=== PATIENT | female | born 1980 | race Caucasian/White ===

== ENCOUNTER 2018-01-07 18:37 | Emergency (ER) | payer SELFPAY ==
[~2018-01-07] VITALS: Ht 160 cm; Wt 75.0 kg
[~2018-01-07 18:37] MED LIST: CAMRTAB PO; DIAZ10TA PO; DULO1CAP3 PO; GABA600T PO; HYDR-3535 PO; HYDR-3583 PO; MAXA10TA2 PO; MS C15TA7 PO; OSEL75 PO; REME30TA PO; TIOC1OIN3 VAGINAL; TIZA4 PO
[2018-01-07 18:49] VITALS: BP 136/93; PULSE 93; RESP 15; TEMP 98.1; O2SAT 96
[2018-01-07 18:53] VITALS: BP 136/93; PULSE 93; RESP 15; TEMP 98.1; O2SAT 96
[2018-01-07] MEDS ORDERED: SODIUM CHLOR 0.9% 1000 ML INJ 1,000 ML IV SCH (18:59)
--- NOTE | 2018-01-07 19:30 | RADRPT ---
EXAM DATE/TIME: 01/07/2018 19:17 [facility] COMPARISON: No previous studies available for comparison. INDICATIONS : Altered mental status. RADIATION DOSE: 36.61 CTDIvol (mGy) MEDICAL HISTORY : Cardiovascular disease. Hypertension. SURGICAL HISTORY : None. ENCOUNTER: Initial ACUITY: 1 day PAIN SCALE: 0/10 LOCATION: cranial TECHNIQUE: Multiple contiguous axial images were obtained of the head. Using automated exposure control and adj ustment of the mA and/or kV according to patient size, radiation dose was kept as low as reasonably a chievable to obtain optimal diagnostic quality images. DICOM format image data is available electro nically for review and comparison. FINDINGS: CEREBRUM: The ventricles are normal for age. No evidence of midline shift, mass lesion, hemorrhage or acute in farction. No extra-axial fluid collections are seen. POSTERIOR FOSSA: The cerebellum and brainstem are intact. The 4th ventricle is midline. The cerebellopontine angle i s unremarkable. EXTRACRANIAL: The visualized portion of the orbits is intact. SKULL: The calvaria is intact. No evidence of skull fracture. CONCLUSION: Normal examination. Lee Gagnon MD on January 07, 2018 at 19:26 Board Certified Radiologist. This report was verified electronically.
[2018-01-07 19:37] LABS: AUTOMATED NEUTROPHIL # 5.1 TH/MM3 (1.8-7.7); BASOPHIL # 0.1 TH/MM3 (0-0.2); BASOPHIL % 0.8 % (0.0-2.0); EOSINOPHIL # 0.1 TH/MM3 (0-0.4); EOSINOPHIL % 1.4 % (0.0-4.0); HEMATOCRIT 39.7 % (35.0-46.0); HEMOGLOBIN 13.3 GM/DL (11.6-15.3); LYMPH % 30.4 % (9.0-44.0); LYMPHOCYTE # 2.7 TH/MM3 (1.0-4.8); MEAN CELL VOLUME 82.2 FL (80.0-100.0); MEAN CORPUSCULAR HEMOGLOBIN 27.5 PG (27.0-34.0); MEAN CORPUSCULAR HGB CONC 33.4 % (32.0-36.0); MONO % 10.3 % (0.0-8.0); MONOCYTE # 0.9 TH/MM3 (0-0.9); NEUT % 57.1 % (16.0-70.0); PLATELET COUNT 527 TH/MM3 (150-450); RED BLOOD COUNT 4.84 MIL/MM3 (4.00-5.30); RED CELL DISTRIBUTION WIDTH 15.2 % (11.6-17.2)
[2018-01-07 20:11] LABS: ALBUMIN 2.9 GM/DL (3.4-5.0); AST (GOT) 20 U/L (15-37); BICARBONATE 19.4 MEQ/L (21.0-32.0); BLOOD UREA NITROGEN 4 MG/DL (7-18); CALCIUM 7.5 MG/DL (8.5-10.1); CHLORIDE 114 MEQ/L (98-107); CREATININE 0.76 MG/DL (0.50-1.00); GLOMERULAR FILTRATION RATE 85 ML/MIN (>89); GLUCOSE,RANDOM 99 MG/DL (74-106); SODIUM (NA) 144 MEQ/L (136-145)
[2018-01-07 20:12] LABS: ALT (GPT) 19 U/L (10-53)
[2018-01-07 20:21] LABS: ALKALINE PHOSPHATASE 105 U/L (45-117); TOTAL BILIRUBIN ADULT 0.3 MG/DL (0.2-1.0); TOTAL PROTEIN 6.5 GM/DL (6.4-8.2); TROPONIN I LESS THAN 0.02 NG/ML (0.02-0.05)
[2018-01-07 20:38] LABS: D-DIMER 1.19 MG/L FEU (0.00-0.50)
--- NOTE | 2018-01-07 22:46 | PD ---
HPI Chief Complaint: Neuro Symptoms/ Deficits Time Seen by Provider: 18:54 Travel History International Travel<30 days: No Contact w/Intl Traveler<30days: No Traveled to known affect area: No History of Present Illness HPI 37y female with a history of Lupus, fibromyalgia, and anxiety presents to the ED via [facility] c/o chest pain and an unusual sensation to her head that started just prior to arrival. Says that she had an electrical shock to her head that was diffuse and intense and she fell onto the ground and began having chest pain. Patient has a difficult time explaining her symptoms. Pt denies loss of consciousness. Says that the electric shock has occurred 5 times today. Her chest pain is localized to the anterior chest without radiation of pain. Patient says that she has a history of unusual lung nodules however, they are unable to perform interventions to correct this because her "platelets are too high". PFSH Past Medical History Arthritis: No Asthma: No Atrial Fibrillation: Yes (H/O AFIB REQUIRED ABLATION) Autoimmune Disease: No Blood Disorders: No Anxiety: Yes Depression: Yes Heart Rhythm Problems: Yes Cancer: No Cardiac Catheterization: No Cardiovascular Problems: Yes High Cholesterol: No Chest Pain: No Congestive Heart Failure: No COPD: No Cerebrovascular Accident: No Diabetes: No Diminished Hearing: No Endocrine: No Fibromyalgia: Yes Gastrointestinal Disorders: No GERD: No Genitourinary: No Hiatal Hernia: No Hypertension: Yes Immune Disorder: No Implanted Vascular Access Dvce: No Insomnia: Yes Kidney Stones: No Medical other: Yes (LUPUS) Musculoskeletal: No Neurologic: Yes (migraines) Psychiatric: Yes Reproductive: No Respiratory: No Migraines: Yes Renal Failure: No Seizures: No Sickle Cell Disease: No Sleep Apnea: No Ulcer: No Tetanus Vaccination: Unknown Influenza Vaccination: Yes ?: Not LMP: 01/07/18 : 3 Para: 3 Past Surgical History Abdominal Surgery: No AICD: No Arteriovenous Shunt: No Cardiac Surgery: Yes (CARDIAC ABLATION 2006) Coronary Artery Bypass Graft: No Ear Surgery: No Endocrine Surgery: Yes (TONSILECTOMY 2000) Eye Surgery: No Genitourinary Surgery: No Gynecologic Surgery: No Insulin Pump: No Joint Replacement: No Oral Surgery: No Pacemaker: No Thoracic Surgery: No Tonsillectomy: Yes Other Surgery: Yes (tonsilectemy, ablation, mass from back?) Social History Alcohol Use: Yes (occasionally) Tobacco Use: No Substance Use: No Allergies-Medications (Allergen,Severity, Reaction): Coded Allergies: diphenhydramine (Unverified Allergy, Severe, MAKES HYPER, 01/07/18) adhesive (Unverified Allergy, Mild, BLISTERS, 01/07/18) Reported Meds & Prescriptions Reported Meds & Active Scripts Active Duloxetine DR (Duloxetine HCl) 60 Mg Capdr 62 Mg PO DAILY Gabapentin 600 Mg Tab 600 Mg PO TID Remeron (Mirtazapine) 30 Mg Tab 30 Mg PO HS Diazepam 10 Mg Tab 10 Mg PO BID PRN Hydrocodone-Acetaminophen 10-325 mg Tab 1 Tab PO Q6H PRN Ms Contin (Morphine Sulfate) 15 Mg Tab 15 Mg PO BID Camrese (Levonorgestrel-Ethinyl Estradiol) 0.15-0.03-0.01 Mg Tab 1 Tab PO DAILY Review of Systems Except as stated in HPI: all other systems reviewed are Neg Physical Exam Narrative GENERAL: Well-nourished, well-developed patient, appearing fatigued and reluctant to discuss her symptoms. SKIN: Focused skin assessment warm/dry. HEAD: Normocephalic. EYES: No scleral icterus. No injection or drainage. NECK: Supple, trachea midline. No JVD or lymphadenopathy. CARDIOVASCULAR: Regular rate and rhythm without murmurs, gallops, or rubs. RESPIRATORY: Breath sounds equal bilaterally. No accessory muscle use. GASTROINTESTINAL: Abdomen soft, non-tender, nondistended. No CVA tenderness MUSCULOSKELETAL: No cyanosis, or edema. No tenderness palpation of the chest wall. Homans sign negative bilaterally BACK: Nontender without obvious deformity. No CVA tenderness. Data Data Last Documented VS Vital Signs Date Time Temp Pulse Resp B/P (MAP) Pulse Ox O2 Delivery O2 Flow Rate FiO2 01/08/18 00:48 60 16 134/87 (103) 98 01/07/18 18:53 98.1 Room Air Orders Orders Electrocardiogram (01/07/18 18:59) Ammonia (01/07/18 18:59) Complete Blood Count With Diff (01/07/18 18:59) Comprehensive Metabolic Panel (01/07/18 18:59) Creatine Kinase (Cpk) (01/07/18 18:59) Prothrombin Time / Inr (Pt) (01/07/18 18:59) Act Partial Throm Time (Ptt) (01/07/18 18:59) Troponin I (01/07/18 18:59) Thyroid Stimulating Hormone (01/07/18 18:59) Urinalysis - C+S If Indicated (01/07/18 18:59) Sodium Chlor 0.9% 1000 Ml Inj (Ns 1000 M (01/07/18 18:59) D-Dimer (01/07/18 18:59) Ct Brain W/O Iv Contrast(Rout) (01/07/18 ) Ct Pulmonary Angiogram (01/07/18 ) Ed Urine Pregnancytest Poc (01/07/18 22:46) Potassium Chloride (Kcl) (01/07/18 23:30) Iohexol 350 Inj (Omnipaque 350 Inj) (01/07/18 23:15) Ed Discharge Order (01/08/18 00:19) Labs Laboratory Tests Test 01/07/18 19:13 01/07/18 19:44 01/07/18 23:30 White Blood Count 9.0 TH/MM3 Red Blood Count 4.84 MIL/MM3 Hemoglobin 13.3 GM/DL Hematocrit 39.7 % Mean Corpuscular Volume 82.2 FL Mean Corpuscular Hemoglobin 27.5 PG Mean Corpuscular Hemoglobin Concent 33.4 % Red Cell Distribution Width 15.2 % Platelet Count 527 TH/MM3 Mean Platelet Volume 8.0 FL Neutrophils (%) (Auto) 57.1 % Lymphocytes (%) (Auto) 30.4 % Monocytes (%) (Auto) 10.3 % Eosinophils (%) (Auto) 1.4 % Basophils (%) (Auto) 0.8 % Neutrophils # (Auto) 5.1 TH/MM3 Lymphocytes # (Auto) 2.7 TH/MM3 Monocytes # (Auto) 0.9 TH/MM3 Eosinophils # (Auto) 0.1 TH/MM3 Basophils # (Auto) 0.1 TH/MM3 CBC Comment DIFF FINAL Differential Comment Prothrombin Time 10.0 SEC Prothromb Time International Ratio 1.0 RATIO Activated Partial Thromboplast Time 26.7 SEC D-Dimer Quantitative (PE/DVT) 1.19 MG/L FEU Blood Urea Nitrogen 4 MG/DL Creatinine 0.76 MG/DL Random Glucose 99 MG/DL Total Protein 6.5 GM/DL Albumin 2.9 GM/DL Calcium Level 7.5 MG/DL Alkaline Phosphatase 105 U/L Aspartate Amino Transf (AST/SGOT) 20 U/L Alanine Aminotransferase (ALT/SGPT) 19 U/L Total Bilirubin 0.3 MG/DL Sodium Level 144 MEQ/L Potassium Level 3.1 MEQ/L Chloride Level 114 MEQ/L Carbon Dioxide Level 19.4 MEQ/L Anion Gap 11 MEQ/L Estimat Glomerular Filtration Rate 85 ML/MIN Total Creatine Kinase 112 U/L Troponin I LESS THAN 0.02 NG/ML Thyroid Stimulating Hormone 3rd Gen 2.850 uIU/ML Ammonia 16 MCMOL/L Urine Color LIGHT-YELLOW Urine Turbidity CLEAR Urine pH 6.0 Urine Specific Webster 1.046 Urine Protein TRACE mg/dL Urine Glucose (UA) NEG mg/dL Urine Ketones NEG mg/dL Urine Occult Blood MOD Urine Nitrite NEG Urine Bilirubin NEG Urine Urobilinogen LESS THAN 2.0 MG/DL Urine Leukocyte Esterase NEG Urine RBC 11 /hpf Urine WBC 3 /hpf Urine Squamous Epithelial Cells 3 /hpf Urine Mucus FEW /lpf Microscopic Urinalysis Comment CATH-CULT NOT IND MDM Medical Decision Making Medical Screen Exam Complete: Yes Emergency Medical Condition: Yes Differential Diagnosis Malingering, generalized weakness, atypical chest pain, ACS, fibromyalgia exacerbation Narrative Course 37-year-old female with history of lupus, fibromyalgia, and anxiety presents emergency department for evaluation of an unusual head pain, she descries as an electric shock, and chest pain that started just prior to arrival. Her chest pain started while watching TV on the couch after her head pain started. Her head pain symptoms are not present upon arrival however. Patient arrived by [facility] and they state that patient had vague symptoms and was unable to completely describe her symptoms. As I walked in to evaluate patient, patient was appearing to interact with the nurses but was unable or unwilling to interact with me. I evaluated patient by asking questions and examining however , patient appeared fatigued and uninterested in our conversation. She was able to tell me that she has a history of pulmonary lung nodules but did not have a complete history regarding the findings or follow-up with these. Patient told [facility] that she had elevated platelets which is the reason why the lung nodules were not acted upon or evaluated further. Because of her history, ordered cardiac labs and include a d-dimer as she does have lupus and she is complaining of chest pain. Vital signs are stable. Physical exam findings essentially unremarkable except for a 37-year-old female obese well-developed, well-nourished, appearing fatigued, somewhat histrionic. EKG shows sinus rhythm without STEMI changes. EMR: Heart cath in 2014 for possible SVT, s/p ablation in 2012. Stress test negative or ischemia 2012. Pulmonary nodule known since 2014, recommended follow up imaging studies Q 6 months. Last Impressions Head CT 01/07/18 0000 Signed Impressions: Service Date/Time: December 19:17 - CONCLUSION: Normal examination. Lee Gagnon MD CBC & BMP Diagram 01/07/18 19:13 Total Protein 6.5, Albumin 2.9 L, Calcium Level 7.5 L, Alkaline Phosphatase 105 , Aspartate Amino Transf (AST/SGOT) 20, Alanine Aminotransferase (ALT/SGPT) 19, Total Bilirubin 0.3 Cardiac enzymes negative. D-dimer 1.19. Because of her complaints of chest pain and history of lupus, ordered CT pulmonary angiogram to r/o PE. KCL administered for hypokalemia. 1L NS IVF administered. Last Impressions Head CT 01/07/18 0000 Signed Impressions: Service Date/Time: December 19:17 - CONCLUSION: Normal examination. Lee Gagnon MD CT Angiography 01/07/18 0000 Signed Impressions: Service Date/Time: December 23:08 - CONCLUSION: No acute disease. Masoud Rodas Jr., MD Pt is discharged and advised to follow up with her PCP. She should follow up with pulmonology regarding her chest imaging studies. Consider neurology for her head pain symptoms if they persist. Diagnosis Primary Impression: Weakness Additional Impressions: Atypical chest pain Hypokalemia Referrals: Neurologist Primary Care Physician Supervisor [employer] Additional Instructions: Follow-up the primary care physician as discussed. Consider follow with nursing informatics analyst for evaluation of your lung nodules. Disposition: 01 DISCHARGE HOME Condition: Stable Dolly Rodríguez Jan 07, 2018 22:46
[2018-01-07] MEDS ORDERED: IOHEXOL 350 MG/ML 10 ML VIAL (for RAD DIAG) IVCONTRAST ONE (23:15)
--- NOTE | 2018-01-07 23:23 | RADRPT ---
EXAM DATE/TIME: 01/07/2018 23:08 [facility] COMPARISON: CT PULMONARY ANGIOGRAM, April 23, 2015, 11:16. INDICATIONS : Syncope. Elevated d-dimer. IV CONTRAST: 75 cc Omnipaque 350 (iohexol) IV RADIATION DOSE: 10.55 CTDIvol (mGy) MEDICAL HISTORY : Hypertension. Lupus. Fibromyalgia. SURGICAL HISTORY : Cardiac ablation. ENCOUNTER: Initial ACUITY: 1 day PAIN SCALE: 0/10 LOCATION: chest TECHNIQUE: Volumetric scanning of the chest was performed using a pulmonary embolism protocol MIP images were re constructed. Using automated exposure control and adjustment of the mA and/or kV according to patien t size, radiation dose was kept as low as reasonably achievable to obtain optimal diagnostic quality images. DICOM format image data is available electronically for review and comparison. Follow-up recommendations for detected pulmonary nodules are based at a minimum on nodule size and pa tient risk factors according to Fleischner Society Guidelines. FINDINGS: PULMONARY ARTERIES: No filling defects are seen in the pulmonary arteries through the segmental level. LUNGS: Linear scarring within the lingula and right middle lobe. No infiltrate or mass. Long-term nodular pl eural thickening involving the superior portion of left major fissure. PLEURAE: There is no pleural thickening or pleural effusion. MEDIASTINUM: There is good visualization of the great vessels of the middle mediastinum. No evidence of mediastin al or hilar adenopathy/mass. MUSCULOSKELETAL: Within normal limits for patient age. MISCELLANEOUS: The visualized upper abdominal organs demonstrate no acute abnormality. CONCLUSION: No acute disease. Masoud Rodas Jr., MD on January 07, 2018 at 23:20 Board Certified Radiologist. This report was verified electronically.
[2018-01-07] MEDS ORDERED: POTASSIUM CHLORIDE 10 MEQ CONTROLLED RELEASE TAB PO ONE (23:30)
[2018-01-07 23:59] LABS: BILIRUBIN, URINE NEG (NEG); BLOOD, URINE MOD (NEG); GLUCOSE,URINE NEG (NEG); KETONE, URINE NEG (NEG); MUCUS URINE FEW /lpf (OCC); NITRITE,URINE NEG (NEG); SQUAMOUS EPITHELIAL CELL URINE 3 /hpf (0-5); URINE COLOR LIGHT-YELLOW (YELLW/STRAW); URINE LEUKOCYTE ESTERASE NEG (NEG)
[2018-01-08 00:48] VITALS: BP 134/87
--- NOTE | 2018-01-09 09:08 | EKG ---
Date Performed: 01/07/2018 Time Performed: 21:17:37 PTAGE: 37 years EKG: Sinus rhythm LOW QRS VOLTAGE IN PRECORDIAL LEADS BORDERLINE ECG PREVIOUS TRACING : 04/23/2015 21.57 DOCTOR: Kristina Cornejo Interpretating Date/Time 01/09/2018 09:06:13
== END 2018-01-08 01:25 | disposition home or self-care (01) ==
LOC: NEPC 18:37
DX: R53.1 Weakness (principal); R07.89 Other chest pain; E87.6 Hypokalemia; R51 Headache; R94.31 Abnormal electrocardiogram [ECG] [EKG]; M32.9 Systemic lupus erythematosus, unspecified; F41.8 Other specified anxiety disorders; I10 Essential (primary) hypertension; M79.7 Fibromyalgia; Z86.79 Personal history of other diseases of the circulatory system; Z86.69 Personal history of other diseases of the nervous system and sense organs
CPT/HCPCS: 70450; 71275; 80053; 81001; 82140; 82550; 84443; 84484; 84703; 85025; 85379; 85610; 85730; 93005; 96360; 99285; J7030; Q9967

== ENCOUNTER 2018-01-11 12:06 | Observation (INO) | payer OTHER ==
[~2018-01-11] VITALS: Ht 152.4 cm; Wt 99.0 kg
[~2018-01-11 12:06] MED LIST changes: -HYDR-3535 PO; -MAXA10TA2 PO; -OSEL75 PO; -TIOC1OIN3 VAGINAL; -TIZA4 PO
[2018-01-11 12:12] VITALS: PULSE 97; RESP 18; O2SAT 96
[2018-01-11 12:16] VITALS: BP 115/71; PULSE 80; RESP 17; O2SAT 95
[2018-01-11] MEDS ORDERED: SODIUM CHLOR 0.9% 1000 ML INJ 1,000 ML IV ONE (12:27)
--- NOTE | 2018-01-11 12:34 | PD ---
HPI Chief Complaint: Neuro Symptoms/ Deficits Time Seen by Provider: 12:14 Travel History International Travel<30 days: No Contact w/Intl Traveler<30days: No Traveled to known affect area: No History of Present Illness HPI This is a 37-year-old female who presents via EMS for evaluation of lightheadedness and dizziness. Symptoms started 5 days ago. She reports that she had a syncopal event and was seen here on January 07. At that time she had lab work, CT the brain, CT pulmonary antrum performed. She was found to have hypokalemia. She was discharged. Since then she reports that she has been essentially laying in bed over the past few days, feeling quite weak. She reports that she has lightheadedness when she stands which is improved when she is sitting or lying down. She saw her primary care physician today who saw her walking very unsteadily and called an ambulance. The patient reports that she has had a sharp electrical intermittent frontal headache for the past 5 days. She denies chest pain, shortness of breath, denies nausea or vomiting but she has had decreased appetite and had little to eat over the past 2 or 3 days. Denies fevers or chills, abdominal pain, constipation. She has had some loose stools. She is on numerous sedating medications including diazepam, Remeron, gabapentin, hydrocodone acetaminophen, morphine however she reports that she has not taken these medications over the past few days secondary to feeling weak and tired. She reports that she lives with her and her daughter. She has no other complaints at this time. [facility] Past Medical History Arthritis: No Asthma: No Atrial Fibrillation: Yes (H/O AFIB REQUIRED ABLATION) Autoimmune Disease: No Blood Disorders: No Anxiety: Yes Depression: Yes Heart Rhythm Problems: Yes Cancer: No Cardiac Catheterization: No Cardiovascular Problems: Yes High Cholesterol: No Chest Pain: No Congestive Heart Failure: No COPD: No Cerebrovascular Accident: No Diabetes: No Diminished Hearing: No Endocrine: No Fibromyalgia: Yes Gastrointestinal Disorders: No GERD: No Genitourinary: No Headaches: No Hiatal Hernia: No Heparin Induced Thrombocytopen: No Hypertension: Yes Immune Disorder: No Implanted Vascular Access Dvce: No Insomnia: Yes Kidney Stones: No Musculoskeletal: No Neurologic: Yes (migraines) Psychiatric: Yes Reproductive: No Respiratory: No Migraines: Yes Renal Failure: No Seizures: No Sickle Cell Disease: No Sleep Apnea: No Ulcer: No ?: Unknown : 3 Para: 3 Past Surgical History Abdominal Surgery: No AICD: No Arteriovenous Shunt: No Cardiac Surgery: Yes (CARDIAC ABLATION 2006) Coronary Artery Bypass Graft: No Ear Surgery: No Endocrine Surgery: Yes (TONSILECTOMY 2000) Eye Surgery: No Genitourinary Surgery: No Gynecologic Surgery: No Insulin Pump: No Joint Replacement: No Neurologic Surgery: No Oral Surgery: No Pacemaker: No Thoracic Surgery: No Tonsillectomy: Yes Other Surgery: Yes (tonsilectemy, ablation, mass from back?) Family History Family Myocardial Infarction: No Social History Alcohol Use: Yes (occasionally) Tobacco Use: No Substance Use: No Allergies-Medications (Allergen,Severity, Reaction): Coded Allergies: diphenhydramine (Unverified Allergy, Severe, MAKES HYPER, 01/11/18) adhesive (Unverified Allergy, Mild, BLISTERS, 01/11/18) Reported Meds & Prescriptions Reported Meds & Active Scripts Active Duloxetine DR (Duloxetine HCl) 60 Mg Capdr 62 Mg PO DAILY Gabapentin 600 Mg Tab 600 Mg PO TID Remeron (Mirtazapine) 30 Mg Tab 30 Mg PO HS Diazepam 10 Mg Tab 10 Mg PO BID PRN Hydrocodone-Acetaminophen 10-325 mg Tab 1 Tab PO Q6H PRN Ms Contin (Morphine Sulfate) 15 Mg Tab 15 Mg PO BID Camrese (Levonorgestrel-Ethinyl Estradiol) 0.15-0.03-0.01 Mg Tab 1 Tab PO DAILY Review of Systems Except as stated in HPI: all other systems reviewed are Neg Physical Exam Narrative GENERAL: Well-developed well-nourished female no acute distress SKIN: Warm and dry. Abrasions noted to the forearms. HEAD: Atraumatic. Normocephalic. EYES: Pupils equal and round reactive to light extra ocular muscles are intact. No scleral icterus. No injection or drainage. ENT: No nasal bleeding or discharge. Mucous membranes pink and moist. NECK: Trachea midline. No JVD. CARDIOVASCULAR: Regular rate and rhythm. No murmur appreciated. RESPIRATORY: No accessory muscle use. Clear to auscultation. Breath sounds equal bilaterally. GASTROINTESTINAL: Abdomen soft, non-tender, nondistended. Hepatic and splenic margins not palpable. MUSCULOSKELETAL: No obvious deformities. No clubbing. No cyanosis. No edema. NEUROLOGICAL: Awake and alert. No obvious cranial nerve deficits. Motor grossly within normal limits. Normal speech. Normal finger to nose. PSYCHIATRIC: Appropriate mood and affect; insight and judgment normal. Data Data Last Documented VS Vital Signs Date Time Temp Pulse Resp B/P (MAP) Pulse Ox O2 Delivery O2 Flow Rate FiO2 01/11/18 13:22 88 16 116/67 (83) 92 121/77 (92) 01/11/18 13:22 97 Room Air Orders Orders Electrocardiogram (01/11/18 12:27) Ed Urine Pregnancytest Poc (01/11/18 12:27) Complete Blood Count With Diff (01/11/18 12:27) Comprehensive Metabolic Panel (01/11/18 12:27) Magnesium (Mg) (01/11/18 12:27) Ckmb (Isoenzyme) Profile (01/11/18 12:27) Troponin I (01/11/18 12:27) Urinalysis - C+S If Indicated (01/11/18 12:27) Blood Glucose (01/11/18 12:27) Ecg Monitoring (01/11/18 12:27) Iv Access Insert/Monitor (01/11/18 12:27) Oximetry (01/11/18 12:27) Sodium Chlor 0.9% 1000 Ml Inj (Ns 1000 M (01/11/18 12:27) Orthostatic Vital Signs (01/11/18 12:27) Admit Order (Ed Use Only) (01/11/18 ) Vital Signs (Adult) Q4H (01/11/18 14:56) Diet Heart Healthy (01/11/18 Dinner) Activity Oob With Assistance (01/11/18 14:56) Notify Dr: Other (01/11/18 14:56) Labs Laboratory Tests Test 01/11/18 13:10 01/11/18 13:30 Urine Color LIGHT-YELLOW Urine Turbidity CLEAR Urine pH 5.0 Urine Specific Pablo 1.002 Urine Protein NEG mg/dL Urine Glucose (UA) NEG mg/dL Urine Ketones NEG mg/dL Urine Occult Blood SMALL Urine Nitrite NEG Urine Bilirubin NEG Urine Urobilinogen LESS THAN 2.0 MG/DL Urine Leukocyte Esterase NEG Urine RBC /hpf Urine WBC 1 /hpf Urine Squamous Epithelial Cells 1 /hpf Microscopic Urinalysis Comment CULT NOT INDICATED White Blood Count 10.6 TH/MM3 Red Blood Count 4.98 MIL/MM3 Hemoglobin 13.7 GM/DL Hematocrit 40.8 % Mean Corpuscular Volume 81.9 FL Mean Corpuscular Hemoglobin 27.6 PG Mean Corpuscular Hemoglobin Concent 33.7 % Red Cell Distribution Width 14.9 % Platelet Count 499 TH/MM3 Mean Platelet Volume 8.2 FL Neutrophils (%) (Auto) 58.4 % Lymphocytes (%) (Auto) 28.5 % Monocytes (%) (Auto) 10.7 % Eosinophils (%) (Auto) 1.7 % Basophils (%) (Auto) 0.7 % Neutrophils # (Auto) 6.2 TH/MM3 Lymphocytes # (Auto) 3.0 TH/MM3 Monocytes # (Auto) 1.1 TH/MM3 Eosinophils # (Auto) 0.2 TH/MM3 Basophils # (Auto) 0.1 TH/MM3 CBC Comment DIFF FINAL Differential Comment Blood Urea Nitrogen 8 MG/DL Creatinine 1.03 MG/DL Random Glucose 87 MG/DL Total Protein 7.6 GM/DL Albumin 3.4 GM/DL Calcium Level 8.6 MG/DL Magnesium Level 2.0 MG/DL Alkaline Phosphatase 130 U/L Aspartate Amino Transf (AST/SGOT) 28 U/L Alanine Aminotransferase (ALT/SGPT) 37 U/L Total Bilirubin 0.4 MG/DL Sodium Level 141 MEQ/L Potassium Level 3.9 MEQ/L Chloride Level 109 MEQ/L Carbon Dioxide Level 21.1 MEQ/L Anion Gap 11 MEQ/L Estimat Glomerular Filtration Rate 60 ML/MIN Total Creatine Kinase 66 U/L Troponin I LESS THAN 0.02 NG/ML MDM Medical Decision Making Medical Screen Exam Complete: Yes Emergency Medical Condition: Yes Medical Record Reviewed: Yes Differential Diagnosis Orthostatic hypotension, dehydration, electrolyte abnormality, hypoglycemia, acute kidney injury, intracranial hemorrhage, subarachnoid hemorrhage, medication side effect, arrhythmia, vertigo Narrative Course The patient was placed on ECG monitoring pulse oximetry. A 12-lead EKG was obtained revealing lab work, orthostatic vital signs will be obtained. I reviewed her records from upper visit on January 07. She had a normal CT pulmonary angiogram. She had a normal CT the brain. Her lab work was notable for potassium of 3.1. CBC reveals a platelet count of 499 otherwise unremarkable. CMP reveals a GFR of 60, chloride 109, ALP 130 otherwise unremarkable. Cardiac enzymes are within normal limits. Urinalysis reveals small blood otherwise unremarkable. The patient remains quite symptomatic when standing during orthostatic vital signs. She will be admitted for observation. Diagnosis Primary Impression: Near syncope Admitting Information Admitting Physician Requests: Observation Srinivas Ramirez Jan 11, 2018 12:34
[2018-01-11 13:22] VITALS: BP_SYST 116; BP_SYST 121; BP_DIAS 67; BP_DIAS 77; RESP 16; O2SAT 97
[2018-01-11 13:29] LABS: BILIRUBIN, URINE NEG (NEG); BLOOD, URINE SMALL (NEG); GLUCOSE,URINE NEG (NEG); KETONE, URINE NEG (NEG); NITRITE,URINE NEG (NEG); SQUAMOUS EPITHELIAL CELL URINE 1 /hpf (0-5); URINE COLOR LIGHT-YELLOW (YELLW/STRAW); URINE LEUKOCYTE ESTERASE NEG (NEG)
[2018-01-11 13:44] LABS: AUTOMATED NEUTROPHIL # 6.2 TH/MM3 (1.8-7.7); BASOPHIL # 0.1 TH/MM3 (0-0.2); BASOPHIL % 0.7 % (0.0-2.0); EOSINOPHIL # 0.2 TH/MM3 (0-0.4); EOSINOPHIL % 1.7 % (0.0-4.0); HEMATOCRIT 40.8 % (35.0-46.0); HEMOGLOBIN 13.7 GM/DL (11.6-15.3); LYMPH % 28.5 % (9.0-44.0); MEAN CELL VOLUME 81.9 FL (80.0-100.0); MEAN CORPUSCULAR HEMOGLOBIN 27.6 PG (27.0-34.0); MEAN CORPUSCULAR HGB CONC 33.7 % (32.0-36.0); MEAN PLATELET VOLUME 8.2 FL (7.0-11.0); MONO % 10.7 % (0.0-8.0); MONOCYTE # 1.1 TH/MM3 (0-0.9); NEUT % 58.4 % (16.0-70.0); PLATELET COUNT 499 TH/MM3 (150-450); RED BLOOD COUNT 4.98 MIL/MM3 (4.00-5.30); RED CELL DISTRIBUTION WIDTH 14.9 % (11.6-17.2); WHITE BLOOD COUNT 10.6 TH/MM3 (4.0-11.0)
--- NOTE | 2018-01-11 13:47 | PD ---
Physical Exam Date Seen by Provider: Jan 11, 2018 Narrative This patient presents to us from her doctor's office because of postconcussive symptoms. Data Data Last Documented VS Vital Signs Date Time Temp Pulse Resp B/P (MAP) Pulse Ox O2 Delivery O2 Flow Rate FiO2 01/11/18 13:22 88 16 116/67 (83) 92 121/77 (92) 01/11/18 13:22 97 Room Air Orders Orders Electrocardiogram (01/11/18 12:27) Ed Urine Pregnancytest Poc (01/11/18 12:27) Complete Blood Count With Diff (01/11/18 12:27) Comprehensive Metabolic Panel (01/11/18 12:27) Magnesium (Mg) (01/11/18 12:27) Ckmb (Isoenzyme) Profile (01/11/18 12:27) Troponin I (01/11/18 12:27) Urinalysis - C+S If Indicated (01/11/18 12:27) Blood Glucose (01/11/18 12:27) Ecg Monitoring (01/11/18 12:27) Iv Access Insert/Monitor (01/11/18 12:27) Oximetry (01/11/18 12:27) Sodium Chlor 0.9% 1000 Ml Inj (Ns 1000 M (01/11/18 12:27) Orthostatic Vital Signs (01/11/18 12:27) Labs Laboratory Tests Test 01/11/18 13:10 01/11/18 13:30 Urine Color LIGHT-YELLOW Urine Turbidity CLEAR Urine pH 5.0 Urine Specific [place] 1.002 Urine Protein NEG mg/dL Urine Glucose (UA) NEG mg/dL Urine Ketones NEG mg/dL Urine Occult Blood SMALL Urine Nitrite NEG Urine Bilirubin NEG Urine Urobilinogen LESS THAN 2.0 MG/DL Urine Leukocyte Esterase NEG Urine RBC /hpf Urine WBC 1 /hpf Urine Squamous Epithelial Cells 1 /hpf Microscopic Urinalysis Comment CULT NOT INDICATED White Blood Count 10.6 TH/MM3 Red Blood Count 4.98 MIL/MM3 Hemoglobin 13.7 GM/DL Hematocrit 40.8 % Mean Corpuscular Volume 81.9 FL Mean Corpuscular Hemoglobin 27.6 PG Mean Corpuscular Hemoglobin Concent 33.7 % Red Cell Distribution Width 14.9 % Platelet Count 499 TH/MM3 Mean Platelet Volume 8.2 FL Neutrophils (%) (Auto) 58.4 % Lymphocytes (%) (Auto) 28.5 % Monocytes (%) (Auto) 10.7 % Eosinophils (%) (Auto) 1.7 % Basophils (%) (Auto) 0.7 % Neutrophils # (Auto) 6.2 TH/MM3 Lymphocytes # (Auto) 3.0 TH/MM3 Monocytes # (Auto) 1.1 TH/MM3 Eosinophils # (Auto) 0.2 TH/MM3 Basophils # (Auto) 0.1 TH/MM3 CBC Comment DIFF FINAL Differential Comment MDM Supervised Visit with BHANU: Yes Narrative Course I, Dr. Ball, have reviewed the advance practice practitioner's documentation and am in agreement, met with the patient face to face, made the diagnosis, and the medical decision making was done by me. *My assessment and Findings: Patient is awake and alert and has a nonfocal neurological examination. She has multiple sedating medications on her medication list. Please see Srinivas Ramirez PA-C's note for results of laboratory and radiographic evaluation, ED course, final diagnosis and disposition Tiffany Ball MD Jan 11, 2018 13:47
[2018-01-11 14:01] LABS: ALBUMIN 3.4 GM/DL (3.4-5.0); ALT (GPT) 37 U/L (10-53); AST (GOT) 28 U/L (15-37); BICARBONATE 21.1 MEQ/L (21.0-32.0); BLOOD UREA NITROGEN 8 MG/DL (7-18); CALCIUM 8.6 MG/DL (8.5-10.1); CHLORIDE 109 MEQ/L (98-107); GLUCOSE,RANDOM 87 MG/DL (74-106); SODIUM (NA) 141 MEQ/L (136-145)
[2018-01-11 14:06] LABS: ALKALINE PHOSPHATASE 130 U/L (45-117); CREATININE 1.03 MG/DL (0.50-1.00); GLOMERULAR FILTRATION RATE 60 ML/MIN (>89); TOTAL BILIRUBIN ADULT 0.4 MG/DL (0.2-1.0); TOTAL PROTEIN 7.6 GM/DL (6.4-8.2); TROPONIN I LESS THAN 0.02 NG/ML (0.02-0.05)
--- NOTE | 2018-01-11 15:07 | HHI.HP ---
[facility] Service Family Medicine Primary Care Physician Boston Freedman MD Admission Diagnosis new onset sz Diagnoses: International Travel<30 Days: No Contact w/Intl Traveler<30days: No Known Affected Area: No History of Present Illness Patient is a 37-year-old female with past medical history significant for migraines, fibromyalgia, depression/anxiety, PTSD presenting to the ED due to dizziness after a recent syncopal episode. She was seen in clinic earlier today, PCP is Dr. Freedman. She went to the ED on 01/07 due to a syncopal episode and was discharged home after the evaluation, including a head CT, was negative. She reports that early on the morning of January 07 she felt "funny" and attempted to go notify her . She lost consciousness and fell to the ground and sustained abrasions to her forearms bilaterally as well as a scratch on the top of her head. She is not able to further recall anything else. She denies any additional syncopal episodes. She feels as if she is going to lose consciousness when she stands up. 2 weeks ago she started having episodes where she describes feeling as if "Electricity is going through her brain". This will happen multiple times a day and it will take her about 20 minutes to recover after an episode. This never happened prior to 2 weeks ago. She has noticed a significant decrease of her appetite and she had to force herself to eat this morning. She denies fevers, chills, nausea, vomiting, abdominal pain. She feels weaker than usual. After she was discharged from the hospital she has remained in bed and endorses feeling dizzy when standing up. She normally has pain in her legs but this has been negligible compared to her headaches. She denies any associated vision changes. She reports that she has had edema of her entire left side over the past 1.5 years as well as elevated platelets. Review of Systems Constitutional: COMPLAINS OF: Dizziness, Change in appetite (decreased), DENIES : Fever, Weight loss, Chills Eyes: DENIES: Eye inflammation, Vision loss Ears, nose, mouth, throat: COMPLAINS OF: Vertigo, DENIES: Hearing loss Respiratory: COMPLAINS OF: Shortness of breath (with standing) Cardiovascular: COMPLAINS OF: Syncope (on 01/07), DENIES: Chest pain, Palpitations Gastrointestinal: COMPLAINS OF: Constipation, DENIES: Abdominal pain, Vomiting Genitourinary: COMPLAINS OF: Urinary incontinence (new on 01/08/18) Musculoskeletal: COMPLAINS OF: Muscle aches Integumentary: DENIES: Rash Neurologic: COMPLAINS OF: Headache, Poor Balance (due to feeling dizzy) Psychiatric: COMPLAINS OF: Anxiety, DENIES: Confusion Past Family Social History Past Medical History Hx PSVT (s/p ablation in May 2006) * negative electrophysiology study December [address] Cornejo for heart palpitations. * Has been stable since then Migraine without aura - Takes Aleve for migraine Generalized anxiety disorder, panic attacks - Diazepam as needed for panic attacks - Duloxetine 60 mg per day Major depressive disorder - Duloxetine 60 mg per day - Three previous psych hospitalizations in [place]. - Not currently seeing a psychiatrist - Last relapse about 2011 PTSD? 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 Menarche age 10 Menses regular, on extended cycle OCP, Periods are [id number] Past Surgical History Surgeries: Ablation for SVT with Dr. Cornejo 2005 Tonsillectomy Reported Medications Reported Meds & Active Scripts Active Duloxetine (Duloxetine HCl) 60 Mg Capdr 62 Mg PO DAILY Gabapentin 600 Mg Tab 600 Mg PO TID Remeron (Mirtazapine) 30 Mg Tab 30 Mg PO HS Diazepam 10 Mg Tab 10 Mg PO BID PRN Hydrocodone-Acetaminophen 10-325 mg Tab 1 Tab PO Q8H as needed (she has been taking this in the morning) Ms Contin (Morphine Sulfate) 15 Mg Tab 15 Mg PO Once daily (in the morning) Camrese (Levonorgestrel-Ethinyl Estradiol) 0.15-0.03-0.01 Mg Tab 1 Tab PO DAILY Allergies: Coded Allergies: diphenhydramine (Unverified Allergy, Severe, MAKES HYPER, 01/11/18) adhesive (Unverified Allergy, Mild, BLISTERS, 01/11/18) Family History Fam hx: Mother - HTN Father - Healthy, 60s Siblings - Healthy Children - Healthy No fam hx of reproductive cancer or colon cancer Social History Social hx: for 10 years. Lives in [place]. 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 Current on disability. Her ex- is still in active and has custody of their children together. Rosmery Michael. Huff lives with her (daughter with current ). 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 She has been honored for her volunteering efforts at the [employer], and has a very strong work ethic. Physical Exam Vital Signs Vital Signs Date Time Temp Pulse Resp B/P (MAP) Pulse Ox O2 Delivery O2 Flow Rate FiO2 01/11/18 13:22 88 16 116/67 (83) 92 121/77 (92) 01/11/18 13:22 97 Room Air 01/11/18 12:16 80 17 115/71 (86) 95 Room Air 01/11/18 12:16 78 01/11/18 12:12 97 18 96 Physical Exam GENERAL: This is a well-nourished, well-developed patient, in no acute cardiopulmonary distress. SKIN: red skin bloches over lower face and mid upper chest. Abrasians on bilateral forearms, scratch over anterior aspect of head. Cool and dry. HEAD: Normocephalic. Several red sore areas on scalp. +scalp tenderness. EYES: Pupils equal round and reactive. Extraocular motions intact. No scleral icterus. No injection or drainage. ENT: Nose without bleeding, purulent drainage or septal hematoma. Throat without erythema, tonsillar hypertrophy or exudate. Uvula midline. Airway patent. NECK: Trachea midline. Supple, nontender, no meningeal signs. CARDIOVASCULAR: Regular rate and rhythm without murmurs, gallops, or rubs. RESPIRATORY: Clear to auscultation. Breath sounds equal bilaterally. No wheezes , rales, or rhonchi. GASTROINTESTINAL: Abdomen soft, non-tender, nondistended. No hepato-splenomegaly , or palpable masses. No guarding. MUSCULOSKELETAL: Extremities without clubbing, cyanosis.Mild 1+ edema of left hand. No joint tenderness, effusion, or edema noted. No calf tenderness. Negative Homans sign bilaterally. NEUROLOGICAL: Awake and alert. Cranial nerves II through XII intact. Motor and sensory grossly within normal limits. Five out of 5 muscle strength in all muscle groups. Normal speech. Pt declines to stand due to fear of severe dizziness. Gait not observed. Laboratory Laboratory Tests Test 01/11/18 13:10 01/11/18 13:30 Urine Color LIGHT-YELLOW Urine Turbidity CLEAR Urine pH 5.0 Urine Specific [place] 1.002 Urine Protein NEG Urine Glucose (UA) NEG Urine Ketones NEG Urine Occult Blood SMALL Urine Nitrite NEG Urine Bilirubin NEG Urine Urobilinogen LESS THAN 2.0 Urine Leukocyte Esterase NEG Urine RBC Urine WBC 1 Urine Squamous Epithelial Cells 1 Microscopic Urinalysis Comment CULT NOT INDICATED White Blood Count 10.6 Red Blood Count 4.98 Hemoglobin 13.7 Hematocrit 40.8 Mean Corpuscular Volume 81.9 Mean Corpuscular Hemoglobin 27.6 Mean Corpuscular Hemoglobin Concent 33.7 Red Cell Distribution Width 14.9 Platelet Count 499 Mean Platelet Volume 8.2 Neutrophils (%) (Auto) 58.4 Lymphocytes (%) (Auto) 28.5 Monocytes (%) (Auto) 10.7 Eosinophils (%) (Auto) 1.7 Basophils (%) (Auto) 0.7 Neutrophils # (Auto) 6.2 Lymphocytes # (Auto) 3.0 Monocytes # (Auto) 1.1 Eosinophils # (Auto) 0.2 Basophils # (Auto) 0.1 CBC Comment DIFF FINAL Differential Comment Blood Urea Nitrogen 8 Creatinine 1.03 Random Glucose 87 Total Protein 7.6 Albumin 3.4 Calcium Level 8.6 Magnesium Level 2.0 Alkaline Phosphatase 130 Aspartate Amino Transf (AST/SGOT) 28 Alanine Aminotransferase (ALT/SGPT) 37 Total Bilirubin 0.4 Sodium Level 141 Potassium Level 3.9 Chloride Level 109 Carbon Dioxide Level 21.1 Anion Gap 11 Estimat Glomerular Filtration Rate 60 Total Creatine Kinase 66 Troponin I LESS THAN 0.02 Result Diagram: 01/11/18 1330 01/11/18 1330 Caprini VTE Risk Assessment Caprini VTE Risk Assessment: No/Low Risk (score <= 1) Caprini Risk Assessment Model Point Value = 1 Point Value = 2 Point Value = 3 Point Value = 5 Age 41-60 Minor surgery BMI > 25 kg/m2 Swollen legs Varicose veins or History of unexplained or recurrent spontaneous Oral contraceptives or hormone replacement Sepsis (< 1 month) Serious lung disease, including pneumonia (< 1 month) Abnormal pulmonary function Acute myocardial infarction Congestive heart failure (< 1 month) History of inflammatory bowel disease Medical patient at bed rest Age 61-74 Arthroscopic surgery Major open surgery (> 45 min) Laparoscopic surgery (> 45 min) Malignancy Confined to bed (> 72 hours) Immobilizing plaster cast Central venous access Age >= 75 History of VTE Family history of VTE Factor V Leiden Prothrombin [id number] Lupus anticoagulant Anticardiolipin antibodies Elevated serum homocysteine Heparin-induced thrombocytopenia Other congenital or acquired thrombophilia Stroke (< 1 month) Elective arthroplasty Hip, pelvis, or leg fracture Acute spinal cord injury (< 1 month) Prophylaxis Regimen Total Risk Factor Score Risk Level Prophylaxis Regimen 0-1 Low Early ambulation 2 Moderate Order ONE of the following: *Sequential Compression Device (SCD) *Heparin 5000 units SQ BID 3-4 Higher Order ONE of the following medications: *Heparin 5000 units SQ TID *Enoxaparin/Lovenox 40 mg SQ daily (WT < 150 kg, CrCl > 30 mL/min) *Enoxaparin/Lovenox 30 mg SQ daily (WT < 150 kg, CrCl > 10-29 mL/min) *Enoxaparin/Lovenox 30 mg SQ BID (WT < 150 kg, CrCl > 30 mL/min) AND/OR *Sequential Compression Device (SCD) 5 or more Highest Order ONE of the following medications: *Heparin 5000 units SQ TID (Preferred with Epidurals) *Enoxaparin/Lovenox 40 mg SQ daily (WT < 150 kg, CrCl > 30 mL/min) *Enoxaparin/Lovenox 30 mg SQ daily (WT < 150 kg, CrCl > 10-29 mL/min) *Enoxaparin/Lovenox 30 mg SQ BID (WT < 150 kg, CrCl > 30 mL/min) AND *Sequential Compression Device (SCD) Assessment and Plan Assessment and Plan Pt admitted after recent syncopal episode, she reports feeling recurrently presyncopal upon standing. Neurology consulted, appreciate recommendations. Code Status Full Discussed Condition With [facility] Dr. Hameed Problem List: (1) Syncope ICD Codes: R55 - Syncope and collapse Plan: Patient with change in quality and severity of headaches and repeated presyncopal episodes and one syncopal episode. Concern for possible seizure due to irregular abrasions on her arms and scalp. -Will recheck orthostatic vitals -EKG ordered -EEG ordered -Echo ordered -Telemetry -MRI with and without contrast ordered -Neurology consulted, appreciate recommendations (2) Fibromyalgia ICD Codes: M79.7 - Fibromyalgia Plan: -Continue home medications -Continue home duloxetine and gabapentin Patient has been trying to decrease her dose of opioid pain medication. She is currently been taking hydrocodone-acetaminophen once daily and morphine once daily. Continue to monitor symptoms (3) Orthostatic hypotension ICD Codes: I95.1 - Orthostatic hypotension Plan: Pt endorses feeling as if she is going to loose consciousness with standing -Will recheck orthostatic vitals -Continue to monitor vitals (4) Elevated platelet count ICD Codes: R79.89 - Other specified abnormal findings of blood chemistry Plan: Patient reports persistent elevation in platelet count. We will check a peripheral smear Consider hematology consult if abnormal (5) Hyperlipidemia ICD Codes: E78.5 - Hyperlipidemia, unspecified Plan: Concern for hyperlipidemia We will check a lipid panel (6) FEN/PPX Plan: Fluids:Oral hydration Electrolytes: Continue to monitor and replete as needed Nutrition: Regular diet DVT PPX: Lovenox Physician Certification 2 Midnight Certification Type: Admission for Inpatient Services Order for Inpatient Services The services are ordered in accordance with Medicare regulations or non- Medicare payer requirements, as applicable. In the case of services not specified as inpatient-only, they are appropriately provided as inpatient services in accordance with the 2-midnight benchmark. Estimated LOS (days): 2 days is the estimated time the patient will need to remain in the hospital, assuming treatment plan goals are met and no additional complications. Post-Hospital Plan: Not yet determined Maddy Ferguson MD R3 Jan 11, 2018 15:07
[2018-01-11] MEDS ORDERED: SODIUM CHLORIDE 0.9% FLUSH 10 ML FLUSH IV FLUSH PRN (16:15)
[2018-01-11] MEDS ORDERED: cloNIDine HCL 0.1 MG TAB PO PRN (17:15)
[2018-01-11] MEDS ORDERED: ONDANSETRON HCL 4 MG/2 ML VIAL IV PUSH PRN (17:15)
[2018-01-11 17:26] LABS: WESTERGREN SEDIMENTATION RATE 6 mm/hr (0-20)
[2018-01-11 17:28] LABS: C-REACTIVE PROTEIN 1.6 MG/DL (0.00-0.30)
[2018-01-11 17:36] LABS: CHOLESTEROL/ HDL RATIO 5.9 RATIO; HDL CHOLESTEROL 41.3 MG/DL (40.0-60.0)
[2018-01-11] MEDS ORDERED: GADODIAMIDE PF 287 MG/ML 20 ML VIAL (for RAD MRI) IVCONTRAST ONE (19:11)
--- NOTE | 2018-01-11 19:27 | RADRPT ---
EXAM DATE/TIME: 01/11/2018 18:43 [facility] COMPARISON: CT BRAIN W/O CONTRAST, January 07, 2018, 19:17. INDICATIONS : Syncope. CONTRAST: 20 cc Omniscan (gadodiamide) IV MEDICAL HISTORY : None. SURGICAL HISTORY : Tonsillectomy. Cardiac ablasion. ENCOUNTER: Initial ACUITY: 4-6 days PAIN SCORE: 8/10 LOCATION: Bilateral cranial TECHNIQUE: Multiplanar, multisequence MRI of the brain was performed both prior to and following the administrat ion of paramagnetic contrast. FINDINGS: CEREBRUM: The ventricles are normal for age. No evidence of midline shift, mass lesion, hemorrhage or acute in farction. No extraaxial fluid collections are seen. The pituitary gland and suprasellar cistern are normal in configuration. WHITE MATTER: No significant signal abnormalities are seen in the white matter. POSTERIOR FOSSA: The cerebellum and brainstem are intact. The 4th ventricle is midline. The cerebellopontine angle is unremarkable. The cerebellar tonsils are normal in position. DIFFUSION IMAGING: No focal areas of restricted diffusion are seen. No evidence of acute infarction. EXTRACRANIAL: The visualized portions of the orbits and paranasal sinuses are unremarkable. POST-CONTRAST: No abnormal areas of parenchymal or dural enhancement. No evidence of blood-brain barrier breakdown. CONCLUSION: Normal MRI of the brain. Lee Sawyer MD on January 11, 2018 at 19:24 Board Certified Radiologist. This report was verified electronically.
[2018-01-11 20:00] VITALS: BP 169/97; PULSE 128; RESP 18; TEMP 97.9; O2SAT 95
--- NOTE | 2018-01-11 20:50 | EKG ---
Date Performed: 01/11/2018 Time Performed: 12:19:25 PTAGE: 37 years EKG: Sinus rhythm LOW QRS VOLTAGE IN PRECORDIAL LEADS BORDERLINE ECG NO PREVIOUS TRACING DOCTOR: Solomon Charles Interpretating Date/Time 01/11/2018 20:49:56
[2018-01-11] MEDS: GABAPENTIN 300 MG CAP PO SCH (20:58)
[2018-01-11] MEDS: DULoxetine HCl DR 60 MG CAP PO SCH (20:58)
[2018-01-11] MEDS: MORPHINE SULFATE 15 MG CONTROLLED RELEASE TAB PO SCH (20:59)
[2018-01-11] MEDS: SODIUM CHLORIDE 0.9% FLUSH 10 ML FLUSH IV FLUSH SCH (20:59)
[2018-01-11] MEDS: MIRTAZAPINE ODT 30 MG TAB PO SCH (21:00)
[2018-01-11 23:00] VITALS: PULSE 113
[2018-01-11] MEDS ORDERED: RIZATRIPTAN 10 MG TABLET PO PRN (23:00)
[2018-01-11] MEDS ORDERED: DIAZEPAM 10 MG TAB PO PRN (23:00)
[2018-01-12] VITALS (8 sets, daily range): BP systolic 87–161; BP diastolic 51–102; PULSE 79–113; RESP 18–20; TEMP 97.3–98.9; O2SAT 93–99
[2018-01-12] MEDS ORDERED: ACETAMINOPHEN/HYDROcodone 325 MG/10 MG TAB PO PRN (04:00)
--- NOTE | 2018-01-12 05:28 | EKG ---
Date Performed: 01/11/2018 Time Performed: 21:09:24 PTAGE: 37 years EKG: SINUS TACHYCARDIA WITH OCCASIONAL VENTRICULAR PREMATURE COMPLEXES POSSIBLE LEFT ATRIAL ENLA RGEMENT NONSPECIFIC T-WAVE ABNORMALITY ABNORMAL RHYTHM ECG PREVIOUS TRACING : 01/11/2018 12.19 Compared to previous tracing, heart rate has increased. DOCTOR: Solomon Charles Interpretating Date/Time 01/12/2018 05:27:25
[2018-01-12 05:47] LABS: AUTOMATED NEUTROPHIL # 7.3 TH/MM3 (1.8-7.7); BASOPHIL % 0.4 % (0.0-2.0); HEMATOCRIT 40.6 % (35.0-46.0); HEMOGLOBIN 13.6 GM/DL (11.6-15.3); LYMPH % 13.6 % (9.0-44.0); LYMPHOCYTE # 1.3 TH/MM3 (1.0-4.8); MEAN CELL VOLUME 82.9 FL (80.0-100.0); MEAN CORPUSCULAR HEMOGLOBIN 27.8 PG (27.0-34.0); MEAN CORPUSCULAR HGB CONC 33.6 % (32.0-36.0); MEAN PLATELET VOLUME 8.5 FL (7.0-11.0); MONO % 7.7 % (0.0-8.0); MONOCYTE # 0.7 TH/MM3 (0-0.9); NEUT % 78.3 % (16.0-70.0); PLATELET COUNT 482 TH/MM3 (150-450); RED BLOOD COUNT 4.89 MIL/MM3 (4.00-5.30); RED CELL DISTRIBUTION WIDTH 14.8 % (11.6-17.2); WHITE BLOOD COUNT 9.3 TH/MM3 (4.0-11.0)
[2018-01-12 06:02] LABS: BICARBONATE 26.3 MEQ/L (21.0-32.0); CALCIUM 8.6 MG/DL (8.5-10.1); CREATININE 0.97 MG/DL (0.50-1.00)
[2018-01-12] MEDS: GABAPENTIN 300 MG CAP PO SCH ×3 (08:38→18:11)
[2018-01-12] MEDS: MORPHINE SULFATE 15 MG CONTROLLED RELEASE TAB PO SCH ×2 (08:39→21:00)
[2018-01-12] MEDS: SODIUM CHLORIDE 0.9% FLUSH 10 ML FLUSH IV FLUSH SCH ×2 (08:39→22:10)
[2018-01-12] MEDS ORDERED: ETHINYL ESTRADIOL PO SCH (09:00)
[2018-01-12] MEDS ORDERED: LEVONORGESTREL PO SCH (09:00)
[2018-01-12] MEDS ORDERED: LEVONORGESTREL ETHINYL ESTRADIOL PO SCH (09:00)
--- NOTE | 2018-01-12 09:05 | MB ---
cc: Randy Davenport MD, PhD DATE: 01/12/2018 REASON FOR CONSULTATION: Syncope, headache. HISTORY OF PRESENT ILLNESS: Ms. Olivas is a very pleasant 37-year-old woman, previously in good health. Last started having head pain, which she describes as an electric shock feeling in her head coming and going. She states that this caused her to pass out, after she got up to walk to her . She struck her head fairly hard at that time, was unconscious for a period of time. She states she came to the ER last . At that time, head CT scan of the brain was within normal limits. She had a pulmonary CT angiogram which was normal. No evidence of PE. She went home, throughout the period of time since then has been having a severe headache, which starts in the left occipital region, goes to the forehead, severe in nature, throbbing and pounding at times, but also with an electrical quality. She feels dizzy and lightheaded if she gets up, she feels faint as though she might pass out, but if she sits down or lays down this subsides. She has been having some memory loss as well. PAST MEDICAL HISTORY: Significant for migraine headaches, fibromyalgia, PTSD, depression, anxiety. No prior history of seizures. MEDICATIONS: Medications at home: She takes Cymbalta 60 mg daily, valium as needed for panic attacks. Current medications in the hospital: Lovenox 40 mg subQ daily, hydrocodone as needed for pain, mirtazapine 30 mg at bedtime, Cymbalta 60 mg at bedtime, morphine sulfate 15 mg b.i.d., gabapentin 600 mg t.i.d., Zofran p.r.n., clonidine p.r.n. NEUROLOGICAL PHYSICAL EXAMINATION: VITAL SIGNS: Her blood pressure is 100/54 supine, sitting 87/57, standing 99/58, pulse 88 regular, respirations 18, temperature 97.3 degrees. NEUROLOGIC: Higher cortical functions: She is alert, oriented, somewhat depressed appearing. Speech is fluent. She has normal recall. Follows commands normally. Cranial nerves are intact. Motor exam: 5/5 strength in all groups. There is no drift. Reflexes are symmetric. MRI of the brain is within normal limits. LABORATORY DATA: White count 9300, hemoglobin 13.6, hematocrit 40%, platelet count 482,000. Sedimentation rate is 6. Sodium is 144, potassium 4.6, chloride 108, CO2 is 26.3. The BUN is 5, creatinine 0.97, calcium is 8.6, glucose 123, triglycerides 302, cholesterol 244, LDL 142. IMPRESSION: History of recent syncope with head injury. I suspect she might have a postconcussive syndrome at the present time causing severe headaches. Also, rule out cervical spondylosis causing occipital neuralgia headaches. I would recommend obtaining an MRI of the cervical spine, as well as an EEG for further evaluation. Randy Davenport MD, PhD VAMSHI/RAMANA , 08:37 AM , 09:04 AM
[2018-01-12] MEDS ORDERED: PILL SPLITTER OTHER PRN (11:00)
--- NOTE | 2018-01-12 11:12 | RADRPT ---
EXAM DATE/TIME: 01/12/2018 10:27 [facility] COMPARISON: No previous studies available for comparison. INDICATIONS : Spondylosis. MEDICAL HISTORY : None. SURGICAL HISTORY : Tonsillectomy. Heart ablation. ENCOUNTER: Initial ACUITY: 2 day PAIN SCORE: 0/10 LOCATION: neck TECHNIQUE: Multiplanar, multisequence MRI examination of the cervical spine was performed. FINDINGS: VERTEBRAE: Normal vertebral body height. Homogeneous marrow signal. ALIGNMENT: No evidence of subluxation. CORD: Normal configuration and signal. POST FOSSA: The cerebellar tonsils are normal in position. C2-C3: The thecal sac has a normal configuration. There is no evidence of disc herniation or spinal canal s tenosis. The neural foramina are patent bilaterally. C3-C4: Mild left-sided facet hypertrophy. The thecal sac has a normal configuration. There is no evidence o f disc herniation or spinal canal stenosis. The neural foramina are patent bilaterally. C4-C5: The thecal sac has a normal configuration. There is no evidence of disc herniation or spinal canal s tenosis. The neural foramina are patent bilaterally. C5-C6: The thecal sac has a normal configuration. There is no evidence of disc herniation or spinal canal s tenosis. The neural foramina are patent bilaterally. C6-C7: The thecal sac has a normal configuration. There is no evidence of disc herniation or spinal canal s tenosis. The neural foramina are patent bilaterally. C7-T1: The thecal sac has a normal configuration. There is no evidence of disc herniation or spinal canal s tenosis. The neural foramina are patent bilaterally. CONCLUSION: Left-sided facet arthrosis is C3-C4. Central canal diameter within normal limits at a ll levels. Neural foraminal diameters within normal limits at all levels. Juan Eckert MD on January 12, 2018 at 11:06 Board Certified Radiologist. This report was verified electronically.
--- NOTE | 2018-01-12 11:22 | HHI.HP ---
[facility] Service Family Medicine Primary Care Physician Boston Freedman MD Admission Diagnosis new onset sz Diagnoses: (1) Syncope Diagnosis: Principal (2) Fibromyalgia Diagnosis: Principal (3) Orthostatic hypotension Diagnosis: Principal (4) Elevated platelet count Diagnosis: Principal (5) Hyperlipidemia Diagnosis: Principal (6) FEN/PPX Diagnosis: Principal International Travel<30 Days: No Contact w/Intl Traveler<30days: No Known Affected Area: No History of Present Illness Ms Olivas is a 37-year-old female with past medical history significant for migraines, fibromyalgia, depression/anxiety, PTSD presenting to the ED due to dizziness after a recent syncopal episode. She was seen in clinic by her PCP, Dr. Freedman. She went to the ED on 01/07 due to a syncopal episode and was discharged home after the evaluation, including a head CT, was negative. She describes entering her home and hearing her daughter playing minecraft in another room. She sat down for a minute and describes a salty taste in her mouth even though she did not eat anything. She also smelled diana like roses "that were old and had decayed". She began to feel "like something was very wrong or bad" and got up to see her when she had "Electricity going through her brain". She lost consciousness and fell to the ground and sustained abrasions to her forearms bilaterally as well as a scratch on the top of her head. She denies any palpitations, nausea or vomiting. She denies any vasovagal type sxs like being lightheaded, diaphoretic, weak or dizzy, etc. She states she has no memory of falling. She is unsure how lond she was lying on the ground. Her was asleep and her daughter did not hear her fall and may not have checked on her for 10-15 minutes after she hit the floor. She remembers nothing until the rescue people came and one man was doing a sternal rub on her which woke her up but the she went right back to sleep. She reports sleeping the whole time she was in the ED as well. She reports finally "waking up" after some hours in the ED. She denies any additional syncopal episodes. Now she feels as if she is going to lose consciousness when she stands up. This will happen multiple times a day and it will take her about 20 minutes to recover after an episode. This never happened prior to 2 weeks ago. She has noticed a significant decrease of her appetite and she had to force herself to eat this morning. She denies fevers, chills, nausea, vomiting, abdominal pain. She feels weaker than usual. After she was discharged from the hospital she has remained in bed for the whole weekend and endorses feeling dizzy when standing up. She normally has pain in her legs but this has been negligible compared to her headaches. She denies any associated vision changes. She reports that she has had edema of her entire left side over the past 1.5 years as well as elevated platelets chronically. We discussed that she is on multiple meds that are at least potentially sedating and that her muscle relaxer in particular can be associated with orthostatic hypotension which is what she has now. She is very reluctant to stop her meds as she feels her pain from fibromyalgia will get worse and she also states she gets terrible withdrawal sxs whenever she stops meds. She, per her chart was taking Zanaflex 8 mg TID since February. With PT today, she was only able to stand up for less than a minute without getting orthostatic sxs but she reports this is better than at home. Review of Systems Other Constitutional: COMPLAINS OF: Dizziness, Change in appetite (decreased), DENIES : Fever, Weight loss, Chills Eyes: DENIES: Eye inflammation, Vision loss Ears, nose, mouth, throat: COMPLAINS OF: Vertigo, DENIES: Hearing loss Respiratory: COMPLAINS OF: Shortness of breath (with standing) Cardiovascular: COMPLAINS OF: Syncope (on 01/07), DENIES: Chest pain, Palpitations Gastrointestinal: COMPLAINS OF: Constipation, DENIES: Abdominal pain, Vomiting Genitourinary: COMPLAINS OF: Urinary incontinence (new on 01/08/18) Musculoskeletal: COMPLAINS OF: Muscle aches Integumentary: DENIES: Rash Neurologic: COMPLAINS OF: Headache, Poor Balance (due to feeling dizzy) Psychiatric: COMPLAINS OF: Anxiety, DENIES: Confusion Past Family Social History Past Medical History Hx PSVT (s/p ablation in May 2006) * negative electrophysiology study December [address] Cornejo for heart palpitations. * Has been stable since then Migraine without aura - Takes Aleve for migraine Generalized anxiety disorder, panic attacks - Diazepam as needed for panic attacks - Duloxetine 60 mg per day Major depressive disorder - Duloxetine 60 mg per day - Three previous psych hospitalizations in [place]. - Not currently seeing a psychiatrist - Last relapse about 2011 PTSD? 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 Menarche age 10 Menses regular, on extended cycle OCP, Periods are S4drozlc Past Surgical History Surgeries: Ablation for SVT with Dr. Cornejo 2005 Tonsillectomy Allergies: Coded Allergies: diphenhydramine (Unverified Allergy, Severe, MAKES HYPER, 01/11/18) adhesive (Unverified Allergy, Mild, BLISTERS, 01/11/18) Family History Fam hx: Mother - HTN Father - Healthy, 60s Siblings - Healthy Children - Healthy No fam hx of reproductive cancer or colon cancer. no family history of neurologic problems or seizures in particular Social History Social hx: for 10 years. Lives in [place]. 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 Current on disability. Her ex- is still in active and has custody of their children together. Boston Botello. Daria lives with her (daughter with current ). 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 She has been honored for her volunteering efforts at the [employer], and has a very strong work ethic. Physical Exam Vital Signs Vital Signs Date Time Temp Pulse Resp B/P (MAP) Pulse Ox O2 Delivery O2 Flow Rate FiO2 01/12/18 08:35 98.0 79 20 96/51 (66) 96 01/12/18 04:00 87/52 (64) 01/12/18 04:00 99/58 (72) 01/12/18 04:00 97.3 88 18 100/54 (69) 95 01/12/18 00:00 97.7 113 18 161/102 (121) 99 01/11/18 23:00 113 01/11/18 20:00 97.9 128 18 169/97 (121) 95 01/11/18 18:27 01/11/18 13:22 88 16 116/67 (83) 92 121/77 (92) 01/11/18 13:22 97 Room Air 01/11/18 12:16 80 17 115/71 (86) 95 Room Air 01/11/18 12:16 78 01/11/18 12:12 97 18 96 Physical Exam GENERAL: This is a well-nourished, well-developed patient, in no acute cardiopulmonary distress. SKIN: red skin blotches over lower face and mid upper chest improved today. Abrasions on bilateral forearms, scratches over anterior aspect of head. Cool and dry. HEAD: Normocephalic. Several red sore areas on scalp. +scalp tenderness. EYES: Pupils equal round and reactive. Extraocular motions intact. No scleral icterus. No injection or drainage. ENT: Nose without bleeding, purulent drainage or septal hematoma. Throat without erythema, tonsillar hypertrophy or exudate. Uvula midline. Airway patent. NECK: Trachea midline. Supple, nontender, no meningeal signs. CARDIOVASCULAR: Regular rate and rhythm without murmurs, gallops, or rubs. RESPIRATORY: Clear to auscultation. Breath sounds equal bilaterally. No wheezes , rales, or rhonchi. GASTROINTESTINAL: Abdomen soft, non-tender, nondistended. No hepato-splenomegaly , or palpable masses. No guarding. MUSCULOSKELETAL: Extremities without clubbing, cyanosis.Mild 1+ edema of left hand. No joint tenderness, effusion, or edema noted. No calf tenderness. Negative Homans sign bilaterally. NEUROLOGICAL: Awake and alert. Cranial nerves II through XII intact. Motor and sensory grossly within normal limits. Five out of 5 muscle strength in all muscle groups. Normal speech. Pt declines to stand due to fear of severe dizziness. Gait not observed. exam done by Dr Ferguson on admission with significant parts repeated by me today Laboratory Laboratory Tests Test 01/11/18 13:10 01/11/18 13:30 01/12/18 04:48 Urine Color LIGHT-YELLOW Urine Turbidity CLEAR Urine pH 5.0 Urine Specific [place] 1.002 Urine Protein NEG Urine Glucose (UA) NEG Urine Ketones NEG Urine Occult Blood SMALL Urine Nitrite NEG Urine Bilirubin NEG Urine Urobilinogen LESS THAN 2.0 Urine Leukocyte Esterase NEG Urine RBC Urine WBC 1 Urine Squamous Epithelial Cells 1 Microscopic Urinalysis Comment CULT NOT INDICATED Urine Opiates Screen POS Urine Barbiturates Screen NEG Urine Amphetamines Screen NEG Urine Benzodiazepines Screen POS Urine Cocaine Screen NEG Urine Cannabinoids Screen NEG White Blood Count 10.6 9.3 Red Blood Count 4.98 4.89 Hemoglobin 13.7 13.6 Hematocrit 40.8 40.6 Mean Corpuscular Volume 81.9 82.9 Mean Corpuscular Hemoglobin 27.6 27.8 Mean Corpuscular Hemoglobin Concent 33.7 33.6 Red Cell Distribution Width 14.9 14.8 Platelet Count 499 482 Mean Platelet Volume 8.2 8.5 Neutrophils (%) (Auto) 58.4 78.3 Lymphocytes (%) (Auto) 28.5 13.6 Monocytes (%) (Auto) 10.7 7.7 Eosinophils (%) (Auto) 1.7 0.0 Basophils (%) (Auto) 0.7 0.4 Neutrophils # (Auto) 6.2 7.3 Lymphocytes # (Auto) 3.0 1.3 Monocytes # (Auto) 1.1 0.7 Eosinophils # (Auto) 0.2 0.0 Basophils # (Auto) 0.1 0.0 CBC Comment DIFF FINAL DIFF FINAL Differential Comment Blood Smear Pathologist Review Erythrocyte Sedimentation Rate 6 Blood Urea Nitrogen 8 5 Creatinine 1.03 0.97 Random Glucose 87 123 Total Protein 7.6 Albumin 3.4 Calcium Level 8.6 8.6 Magnesium Level 2.0 Alkaline Phosphatase 130 Aspartate Amino Transf (AST/SGOT) 28 Alanine Aminotransferase (ALT/SGPT) 37 Total Bilirubin 0.4 Sodium Level 141 144 Potassium Level 3.9 4.6 Chloride Level 109 108 Carbon Dioxide Level 21.1 26.3 Anion Gap 11 10 Estimat Glomerular Filtration Rate 60 64 Total Creatine Kinase 66 Troponin I LESS THAN 0.02 C-Reactive Protein 1.60 Triglycerides Level 302 Cholesterol Level 244 LDL Cholesterol 142 HDL Cholesterol 41.3 Cholesterol/HDL Ratio 5.90 Thyroid Stimulating Hormone 3rd Gen 2.100 Human Chorionic Gonadotropin, Quant LESS THAN 1 Result Diagram: 01/12/1844701/12/18447 Caprini VTE Risk Assessment Caprini VTE Risk Assessment: No/Low Risk (score <= 1) Caprini Risk Assessment Model Point Value = 1 Point Value = 2 Point Value = 3 Point Value = 5 Age 41-60 Minor surgery BMI > 25 kg/m2 Swollen legs Varicose veins or History of unexplained or recurrent spontaneous Oral contraceptives or hormone replacement Sepsis (< 1 month) Serious lung disease, including pneumonia (< 1 month) Abnormal pulmonary function Acute myocardial infarction Congestive heart failure (< 1 month) History of inflammatory bowel disease Medical patient at bed rest Age 61-74 Arthroscopic surgery Major open surgery (> 45 min) Laparoscopic surgery (> 45 min) Malignancy Confined to bed (> 72 hours) Immobilizing plaster cast Central venous access Age >= 75 History of VTE Family history of VTE Factor V Leiden Prothrombin [id number] Lupus anticoagulant Anticardiolipin antibodies Elevated serum homocysteine Heparin-induced thrombocytopenia Other congenital or acquired thrombophilia Stroke (< 1 month) Elective arthroplasty Hip, pelvis, or leg fracture Acute spinal cord injury (< 1 month) Prophylaxis Regimen Total Risk Factor Score Risk Level Prophylaxis Regimen 0-1 Low Early ambulation 2 Moderate Order ONE of the following: *Sequential Compression Device (SCD) *Heparin 5000 units SQ BID 3-4 Higher Order ONE of the following medications: *Heparin 5000 units SQ TID *Enoxaparin/Lovenox 40 mg SQ daily (WT < 150 kg, CrCl > 30 mL/min) *Enoxaparin/Lovenox 30 mg SQ daily (WT < 150 kg, CrCl > 10-29 mL/min) *Enoxaparin/Lovenox 30 mg SQ BID (WT < 150 kg, CrCl > 30 mL/min) AND/OR *Sequential Compression Device (SCD) 5 or more Highest Order ONE of the following medications: *Heparin 5000 units SQ TID (Preferred with Epidurals) *Enoxaparin/Lovenox 40 mg SQ daily (WT < 150 kg, CrCl > 30 mL/min) *Enoxaparin/Lovenox 30 mg SQ daily (WT < 150 kg, CrCl > 10-29 mL/min) *Enoxaparin/Lovenox 30 mg SQ BID (WT < 150 kg, CrCl > 30 mL/min) AND *Sequential Compression Device (SCD) Assessment and Plan Assessment and Plan Pt admitted after recent syncopal episode suspected seizure, now she reports feeling recurrently presyncopal upon standing and is orthostatic. Neurology consulted, appreciate recommendations. Problem List: (1) Syncope ICD Codes: R55 - Syncope and collapse Status: Acute Plan: Patient with change in quality and severity of headaches and repeated presyncopal episodes now and one syncopal episode. Concern for possible seizure due to irregular abrasions on her arms and scalp. - orthostatic vitals show this problem -EKG ordered -EEG ordered -Echo ordered -Telemetry -MRI with and without contrast ordered -Neurology consulted, appreciate recommendations concerned for orthostasis being worsened by her meds especially her muscle relaxer. will need to wean this med as she could get withdrawal from sudden cessation. (2) Orthostatic hypotension ICD Codes: I95.1 - Orthostatic hypotension Status: Acute Plan: Pt endorses feeling as if she is going to loose consciousness with standing -orthostatic vitals are positive. can consider a bolus of fluid if needed and decreasing/stopping meds that can cause that -Continue to monitor vitals (3) Fibromyalgia ICD Codes: M79.7 - Fibromyalgia Status: Chronic Plan: -Continue home medications -Continue home duloxetine and gabapentin Patient has been trying to decrease her dose of opioid pain medication. She is currently been taking hydrocodone-acetaminophen once daily and morphine once daily. Continue to monitor symptoms (4) Elevated platelet count ICD Codes: R79.89 - Other specified abnormal findings of blood chemistry Status: Chronic Plan: Patient reports persistent elevation in platelet count. We will check a peripheral smear Consider hematology consult if abnormal (5) Hyperlipidemia ICD Codes: E78.5 - Hyperlipidemia, unspecified Status: Chronic Plan: Concern for hyperlipidemia We will check a lipid panel (6) FEN/PPX Status: Acute Plan: Fluids:Oral hydration Electrolytes: Continue to monitor and replete as needed Nutrition: Regular diet DVT PPX: Lovenox Problem Qualifiers (1) Syncope: Qualified Codes: R55 - Syncope and collapse (2) Hyperlipidemia: Qualified Codes: E78.00 - Pure hypercholesterolemia, unspecified Kelly Hameed MD Jan 12, 2018 11:22
--- NOTE | 2018-01-12 11:31 | RADRPT ---
EXAM DATE/TIME: 01/12/2018 10:27 [place] COMPARISON: No previous studies available for comparison. INDICATIONS : Aneurysm. Syncope. MEDICAL HISTORY : None. SURGICAL HISTORY : Tonsillectomy. Heart ablation. ENCOUNTER: Initial ACUITY: 2 day PAIN SCORE: 5/10 LOCATION: head Please note a normal MRA of the brain does not entirely exclude the possibility of a small aneurysm, nor the possibility of distal intracranial vessel disease. TECHNIQUE: 3D time of flight MRA was performed. Source images, multiplanar STS MIP, and 3D volume MIP reconstru ctions were reviewed. FINDINGS: Anterior circulation: Distal intracranial internal carotid arteries are patent with flow extending to the middle and anteri or cerebral arteries. There is no evidence for aneurysm, vessel truncation or stenosis, and no eviden ce for vascular malformation. Posterior circulation: Symmetric distal vertebral arteries with flow extending to basilar artery. 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 Patent left P-comm. There is no evidence for aneurysm, vessel truncation or stenosis, and no noni dence for vascular malformation. CONCLUSION: 1. Unremarkable MRA examination of the [place]. Specifically, no evidence for cerebral aneur ysm or vascular malformation. Artie Auguste MD on January 12, 2018 at 11:09 Board Certified Radiologist. This report was verified electronically.
--- NOTE | 2018-01-12 15:22 | MG ---
cc: Randy Davenport MD, PhD TEST #[id number]. TECHNIQUE: This is a 17-channel EEG. DESCRIPTION: The background rhythm reveals a symmetrical alpha rhythm, frequency is 8-10 Hz. Amplitude is 20-30 microvolts. There is expected anterior decrement to response. There are no lateralizing features identified and no epileptiform discharges identified. Photic stimulation is done in a stepwise fashion with a normal driving response. Hyperventilation does not alter the background rhythm. INTERPRETATION: Normal EEG. Randy Davenport MD, PhD VAMSHI/TL , 03:08 PM , 03:21 PM
[2018-01-12 16:38] LABS: HEMOGLOBIN A1C 5.4 % (4.3-6.0)
[2018-01-12] MEDS ORDERED: ENOXAPARIN SODIUM 40 MG/0.4 ML SYRINGE SQ SCH (18:00)
--- NOTE | 2018-01-12 18:43 | ECHRPT ---
Indication: SYNCOPE CONCLUSIONS Technically difficult study. In limited views, the left ventricular systolic function is normal with an estimated ejection fracti on in the range of 60-65%. Trace aortic valve regurgitation. BP: 100 / 54 HR: Rhythm: Sinus MEASUREMENTS (Male / Female) Normal Values Technical Quality:Technically difficult study 2D ECHO LV Diastolic Diameter PLAX 4.9 cm 4.2 - 5.9 / 3.9 - 5.3 cm LV Systolic Diameter PLAX 3.5 cm IVS Diastolic Thickness 0.9 cm 0.6 - 1.0 / 0.6 - 0.9 cm LVPW Diastolic Thickness 0.9 cm 0.6 - 1.0 / 0.6 - 0.9 cm LV Relative Wall Thickness 0.4 RV Internal Dim ED PLAX 2.0 cm LVOT Diameter 2.1 cm Aortic Root Diameter 3.1 cm LA Systolic Diameter LX 2.9 cm 3.0 - 4.0 / 2.7 - 3.8 cm M-MODE AV Cusp Separation MM 2.4 cm DOPPLER AV Peak Velocity 143.0 cm/s AV Peak Gradient 8.2 mmHg AV Mean Gradient 5.0 mmHg AV Velocity Time Integral 24.7 cm LVOT Peak Velocity 115.0 cm/s LVOT Peak Gradient 5.3 mmHg LVOT Velocity Time Integral 19.0 cm AV Area Cont Eq vti 2.7 cm AV Area Cont Eq pk 2.8 cm Mitral E Point Velocity 63.7 cm/s Mitral A Point Velocity 70.1 cm/s Mitral E to A Ratio 0.9 LV E' Lateral Velocity 10.4 cm/s Mitral E to LV E' Lateral Ratio 6.1 LV E' Septal Velocity 10.9 cm/s Mitral E to LV E' Septal Ratio 5.8 PV Peak Velocity 63.9 cm/s PV Peak Gradient 1.6 mmHg FINDINGS LEFT VENTRICLE Normal left ventricular size. Wall thickness is normal. In limited views, the left ventricular systolic function is normal with an estimated ejection fracti on in the range of 60-65%. RIGHT VENTRICLE Grossly normal LEFT ATRIUM The left atrial size is normal. RIGHT ATRIUM The right atrial size is normal. ATRIAL SEPTUM The interatrial septum not well visualized. AORTA The aortic root and proximal ascending aorta are not well visualized. MITRAL VALVE Grossly normal mitral valve No mitral valve stenosis. No mitral valve regurgitation. AORTIC VALVE Trileaflet aortic valve. Trace aortic valve regurgitation. No aortic valve stenosis. TRICUSPID VALVE Structurally normal tricuspid valve. No tricuspid valve stenosis or regurgitation. PULMONARY VALVE No pulmonary valve regurgitation or stenosis. VESSELS The inferior vena cava was not well visualized. PERICARDIUM No pericardial effusion. A prominent epicardial fat pad is present. Julian Arambula DO (Electronically Signed) Final Date:12 January 2018 18:42
[2018-01-12] MEDS: DULoxetine HCl DR 60 MG CAP PO SCH (22:41)
[2018-01-12] MEDS: MIRTAZAPINE ODT 30 MG TAB PO SCH (22:42)
[2018-01-12] MEDS ORDERED: PATIENT OWN MEDICATION PO SCH (23:00)
[2018-01-13] VITALS (7 sets, daily range): BP systolic 89–121; BP diastolic 50–75; PULSE 75–109; RESP 18–20; TEMP 97.7–99.2; O2SAT 93–99
--- NOTE | 2018-01-13 08:47 | HHI.PR ---
Review/Management Diagnosis probable post concussive syndrome. Syncope--doubt seizure Plan recommend PT continue gabapentin and zanaflex Diagnosis/Plan: Subjective Subjective Comments No acute events reported still with headache diffusely If she gets up she c/o dizzyness with vertigo. No LOC Active Medications Current Medications Medications (Trade) Dose Ordered Sig/Lovely Route Start Time Stop Time Status Last Admin (NS Flush) 2 ml UNSCH PRN IV FLUSH 01/11/18 16:15 (NS Flush) 2 ml BID IV FLUSH 01/11/18 21:00 01/12/18 22:10 (Cymbalta Dr) 60 mg HS PO 01/11/18 21:00 01/12/18 22:41 (Neurontin) 600 mg TID PO 01/11/18 18:00 01/12/18 18:11 ([place] 10-325 Mg) 1 tab DAILY PRN PO 01/12/18 04:00 01/12/18 08:39 (Remeron Soltab Odt) 30 mg HS PO 01/11/18 21:00 01/12/18 22:42 (Oramorph Sr) 15 mg BID PO 01/11/18 21:00 01/12/18 08:39 (Lovenox Inj) 40 mg Q24H SQ 01/12/18 18:00 01/12/18 18:12 (Zofran Inj) 4 mg Q6HR PRN IV PUSH 01/11/18 17:15 01/12/18 00:10 (Catapres) 0.1 mg Q6H PRN PO 01/11/18 17:15 01/11/18 20:58 Patient Own Medication PT OWN MED: CAMERESE(ETHINYL ESTRADI... DAILY PO 01/12/18 09:00 Future hold (Valium) 10 mg BID PRN PO 01/11/18 23:00 01/12/18 23:07 Patient Own Medication PT OWN MED: RIZATRIP... DAILY PRN PO 01/11/18 23:00 Future hold (Zanaflex) 2 mg BID PO 01/12/18 11:00 01/12/18 22:41 (Zanaflex) 6 mg DAILY@2200 PO 01/12/18 22:00 01/12/18 22:41 (Pill Splitter) 1 ea UNSCH PRN OTHER 01/12/18 11:00 Allergies Allergies Coded Allergies diphenhydramine (Unverified Allergy, Severe, MAKES HYPER, 01/11/18) adhesive (Unverified Allergy, Mild, BLISTERS, 01/11/18) Exam I&O / VS Vital Signs Date Time Temp Pulse Resp B/P (MAP) Pulse Ox O2 Delivery O2 Flow Rate FiO2 01/13/18 08:33 98.6 89 20 90/51 (64) 93 01/13/18 05:19 92 18 100/63 (75) 96 01/13/18 04:00 99.2 75 18 89/50 (63) 97 01/13/18 00:00 98.7 95 18 119/75 (90) 96 01/13/18 00:00 96 01/12/18 22:14 97.7 109 19 138/76 (96) 96 108/69 (82) 113/76 (88) 01/12/18 21:48 21 01/12/18 20:39 98.9 92 18 107/60 (76) 97 01/12/18 20:00 89 01/12/18 16:00 97.7 89 20 112/64 (80) 93 01/12/18 12:40 97.9 99 20 158/81 (106) 96 152/69 (96) 154/69 (97) Exam Comments alert, oriented speech is normal CNintact MOTOR--generalized weakness but no focal deficits Objective Radiology Results MRI and MRA brain are both normal MRI cervical spine shows mild spondylosis C34. No stenosis and no spinal cord involvement Randy Davenport MD PhD Jan 13, 2018 08:47
--- NOTE | 2018-01-13 09:13 | HHI.FPPN ---
Subjective Remarks Pt seen and examined this morning. No acute events overnight. She is feeling slightly improved this morning. She was able to stand for a short period of time yesterday. She denies chest pain, abdominal pain, shortness of breath. We discussed additional history and that prior to syncopal episode on 01/07 she smelled rotting diana and had a salty taste in her mouth. She slept for most of the day after she was discharged from the ED and she does not recall much of what happened after her syncopal episode or her time in the ED. (Maddy Ferguson MD R3) Objective Vitals Vital Signs Date Time Temp Pulse Resp B/P (MAP) Pulse Ox O2 Delivery O2 Flow Rate FiO2 01/13/18 08:33 98.6 89 20 90/51 (64) 93 01/13/18 05:19 92 18 100/63 (75) 96 01/13/18 04:00 99.2 75 18 89/50 (63) 97 01/13/18 00:00 98.7 95 18 119/75 (90) 96 01/13/18 00:00 96 01/12/18 22:14 97.7 109 19 138/76 (96) 96 108/69 (82) 113/76 (88) 01/12/18 21:48 21 01/12/18 20:39 98.9 92 18 107/60 (76) 97 01/12/18 20:00 89 01/12/18 16:00 97.7 89 20 112/64 (80) 93 01/12/18 12:40 97.9 99 20 158/81 (106) 96 152/69 (96) 154/69 (97) I/O 01/12/18 01/12/18 01/12/18 01/13/18 01/13/18 01/13/18 07:00 15:00 23:00 07:00 15:00 23:00 Intake Total 600 ml Balance 600 ml Intake Oral 600 ml # Voids 6 9 2 4 (Maddy Ferguson MD R3) Result Diagram: 01/12/1844701/12/18447 Objective Remarks GENERAL: This is a well-nourished, well-developed patient, in no acute distress. SKIN: Area of irritated skin over mid upper chest from telemetry adhesive. Abrasions on bilateral forearms, scratch over anterior aspect of head. Cool and dry. HEAD: Normocephalic. Scratch over left anterior forehead extending to scalp. EYES: Extraocular motions intact. No scleral icterus. No injection or drainage. ENT: Nose without bleeding, purulent drainage or septal hematoma. CARDIOVASCULAR: Regular rate and rhythm without murmurs, gallops, or rubs. RESPIRATORY: Clear to auscultation. Breath sounds equal bilaterally. No wheezes , rales, or rhonchi. GASTROINTESTINAL: Abdomen soft, non-tender, nondistended. +BS MUSCULOSKELETAL: Extremities without clubbing, cyanosis. NEUROLOGICAL: Awake and alert. Motor and sensory grossly within normal limits. (Maddy Ferguson MD R3) A/P Assessment and Plan Pt admitted after recent syncopal episode suspected seizure, now she reports feeling recurrently presyncopal upon standing and is orthostatic. Neurology consulted, appreciate recommendations. Discharge Planning Anticipate discharge later today (Maddy Ferguson MD R3) Attending Attestation Patient seen and examined. Case reviewed and discussed with the resident team. Agree with plan of care as discussed with me and documented in the resident note. she really wants to go home and her will help her out at home. statistically, per Neurology and studies, an initial seizure is unlikely to recur. all seizure meds have side effects, so meds are often started only after a recurrent seizure. She will follow up with Neurology and was told to not drive, swim alone or operate dangerous machinery until Neuro says it is fine (Kelly Hameed MD) Problem List: (1) Syncope ICD Codes: R55 - Syncope and collapse Status: Acute Plan: Pt with syncopal episode on 01/07, likely with post concussive syndrome. Concern for possible seizure due to irregular abrasions on her arms and scalp and aura prior to syncopal episode. -Orthostatic vitals Positive -EEG normal -Echo normal: EF 60-65% -Telemetry reviewed -MRI with and without contrast ordered -Neurology consulted, appreciate recommendations (2) Orthostatic hypotension ICD Codes: I95.1 - Orthostatic hypotension Status: Acute Plan: Pt endorses feeling as if she is going to loose consciousness with standing -orthostatic vitals are positive. can consider a bolus of fluid if needed and decreasing/stopping meds that can cause that -Continue to decrease dose of Tizanidine due to concern that this is worsening orthostatic hypotension -Continue to monitor vitals (3) Fibromyalgia ICD Codes: M79.7 - Fibromyalgia Status: Chronic Plan: -Continue home medications -Continue home duloxetine and gabapentin Patient has been trying to decrease her dose of opioid pain medication. She is currently been taking hydrocodone-acetaminophen once daily and morphine once daily. Continue to monitor symptoms (4) Elevated platelet count ICD Codes: R79.89 - Other specified abnormal findings of blood chemistry Status: Chronic Plan: Patient reports persistent elevation in platelet count. We will check a peripheral smear Consider hematology consult if abnormal (5) FEN/PPX Status: Acute Plan: Fluids:Oral hydration Electrolytes: Continue to monitor and replete as needed Nutrition: Regular diet DVT PPX: Lovenox (Maddy Ferguson MD R3) Problem Qualifiers (1) Syncope: Qualified Codes: R55 - Syncope and collapse Maddy Ferguson MD R3 Jan 13, 2018 09:13 Kelly Hameed MD Jan 14, 2018 12:18
[2018-01-13] MEDS: SODIUM CHLORIDE 0.9% FLUSH 10 ML FLUSH IV FLUSH SCH (09:52)
[2018-01-13] MEDS: GABAPENTIN 300 MG CAP PO SCH ×2 (09:55→12:52)
[2018-01-13] MEDS: MORPHINE SULFATE 15 MG CONTROLLED RELEASE TAB PO SCH (09:56)
--- NOTE | 2018-01-13 10:00 | HM ---
Date Performed: 01/11/2018 Time Performed: 21:18:00 HOOKUP DATE: 01/11/18 09:18:00 PM Mon ANALYSIS START TIME: 01/11/2018 9:23:00 PM ANALYSIS END TIME: 01/12/2018 10:24:59 AM PATIENT AGE: 37 PATIENT HEIGHT PATIENT WEIGHT DRUG LIST PATIENT DIAGNOSIS: new onset sz TEST NARRATIVE: The patient's average heart rate was 93 BPM. Heart rates greater than 120 B PM were noted 21% of the time. No episodes of bradycardia were noted. No pauses exceeding 2.0 se conds were noted. 50 ventricular ectopics, which represented < 1% of the total beat count, were n oted. The highest ventricular ectopic frequency occurred from 11:00 PM to 12:00 AM Tue. During this time 16 VE(s) occurred. Ventricular ectopics were observed as 50 isolated beat(s) only. No couplet s or runs were noted. 2 supraventricular ectopics, which represented < 1% of the total beat count , were noted. The highest supraventricular ectopic frequency occurred from 11:00 PM to 12:00 AM Tue. During this time 1 SVE(s) occurred. No episodes of ST depression (defined as -1.0 mm or more) w ere noted in channel 1. No episodes of ST depression (defined as -1.0 mm or more) were noted in [facility]. No episodes of ST depression (defined as -1.0 mm or more) were noted in channel 3. TEST INTERPRETATION: Sinus rhythm Rare PVCs in singlets Signed by : Franklin Hawley
[2018-01-13] MEDS ORDERED: MORP1TAB24 PO (12:42)
[2018-01-13] MEDS ORDERED: TIZA2TAB PO (12:42)
[2018-01-13] MEDS ORDERED: HYDR-3583 PO (12:42)
--- NOTE | 2018-01-13 12:46 | HHI.DCPOC ---
Discharge Care Plan Diagnosis: (1) Elevated platelet count (2) Syncope (3) Orthostatic hypotension (4) Fibromyalgia (5) Hyperlipidemia (6) Anxiety and depression Goals to Promote Your Health * To prevent worsening of your condition and complications * To maintain your health at the optimal level Directions to Meet Your Goals Take your medications as prescribed Follow your dietary instruction Follow activity as directed Keep your appointments as scheduled Take your immunizations and boosters as scheduled If your symptoms worsen call your PCP, if no PCP go to Urgent Care Center or Emergency Room Smoking is Dangerous to Your Health. Avoid second hand smoke Call the 24-hour hour crisis hotline for domestic abuse at Maddy Ferguson MD R3 Jan 13, 2018 12:46
--- NOTE | 2018-01-13 12:55 | HHI.DS ---
Discharge Summary Admission Date Jan 11, 2018 at 14:58 Discharge Date: Jan 13, 2018 Admitting Diagnosis new onset sz (1) Syncope Diagnosis: Principal Plan: Pt with syncopal episode on 01/07, likely with post concussive syndrome. Concern for possible seizure due to irregular abrasions on her arms and scalp and aura prior to syncopal episode. -Orthostatic vitals Positive -EEG normal -Echo normal: EF 60-65% -Telemetry reviewed -MRI with and without contrast ordered -Neurology consulted, appreciate recommendations ICD Codes: R55 - Syncope and collapse Status: Acute (2) Orthostatic hypotension Diagnosis: Principal Plan: Pt endorses feeling as if she is going to loose consciousness with standing -orthostatic vitals are positive. can consider a bolus of fluid if needed and decreasing/stopping meds that can cause that -Continue to decrease dose of Tizanidine due to concern that this is worsening orthostatic hypotension -Continue to monitor vitals ICD Codes: I95.1 - Orthostatic hypotension Status: Acute (3) Fibromyalgia Plan: -Continue home medications -Continue home duloxetine and gabapentin Patient has been trying to decrease her dose of opioid pain medication. She is currently been taking hydrocodone-acetaminophen once daily and morphine once daily. Continue to monitor symptoms ICD Codes: M79.7 - Fibromyalgia Status: Chronic (4) Elevated platelet count Plan: Patient reports persistent elevation in platelet count. We will check a peripheral smear Consider hematology consult if abnormal ICD Codes: R79.89 - Other specified abnormal findings of blood chemistry Status: Chronic (5) FEN/PPX Plan: Fluids:Oral hydration Electrolytes: Continue to monitor and replete as needed Nutrition: Regular diet DVT PPX: Lovenox Status: Acute Brief History Ms Olivas is a 37-year-old female with past medical history significant for migraines, fibromyalgia, depression/anxiety, PTSD presenting to the ED due to dizziness after a recent syncopal episode. She was seen in clinic by her PCP, Dr. Freedman. She went to the ED on 01/07 due to a syncopal episode and was discharged home after the evaluation, including a head CT, was negative. She describes entering her home and hearing her daughter playing minecraft in another room. She sat down for a minute and describes a salty taste in her mouth even though she did not eat anything. She also smelled diana like roses "that were old and had decayed". She began to feel "like something was very wrong or bad" and got up to see her when she had "Electricity going through her brain". She lost consciousness and fell to the ground and sustained abrasions to her forearms bilaterally as well as a scratch on the top of her head. She denies any palpitations, nausea or vomiting. She denies any vasovagal type sxs like being lightheaded, diaphoretic, weak or dizzy, etc. She states she has no memory of falling. She is unsure how lond she was lying on the ground. Her was asleep and her daughter did not hear her fall and may not have checked on her for 10-15 minutes after she hit the floor. She remembers nothing until the rescue people came and one man was doing a sternal rub on her which woke her up but the she went right back to sleep. She reports sleeping the whole time she was in the ED as well. She reports finally "waking up" after some hours in the ED. She denies any additional syncopal episodes. Now she feels as if she is going to lose consciousness when she stands up. This will happen multiple times a day and it will take her about 20 minutes to recover after an episode. This never happened prior to 2 weeks ago. She has noticed a significant decrease of her appetite and she had to force herself to eat this morning. She denies fevers, chills, nausea, vomiting, abdominal pain. She feels weaker than usual. After she was discharged from the hospital she has remained in bed for the whole weekend and endorses feeling dizzy when standing up. She normally has pain in her legs but this has been negligible compared to her headaches. She denies any associated vision changes. She reports that she has had edema of her entire left side over the past 1.5 years as well as elevated platelets chronically. We discussed that she is on multiple meds that are at least potentially sedating and that her muscle relaxer in particular can be associated with orthostatic hypotension which is what she has now. She is very reluctant to stop her meds as she feels her pain from fibromyalgia will get worse and she also states she gets terrible withdrawal sxs whenever she stops meds. She, per her chart was taking Zanaflex 8 mg TID since February. With PT today, she was only able to stand up for less than a minute without getting orthostatic sxs but she reports this is better than at home. CBC/BMP: 01/12/18 0448 01/12/18 0448 Significant Findings Laboratory Tests Test 01/11/18 13:10 01/11/18 13:30 01/12/18 04:48 Urine Occult Blood SMALL (NEG) Urine Opiates Screen POS (NEG) Urine Benzodiazepines Screen POS (NEG) Platelet Count 499 TH/MM3 (150-450) 482 TH/MM3 (150-450) Monocytes (%) (Auto) 10.7 % (0.0-8.0) Monocytes # (Auto) 1.1 TH/MM3 (0-0.9) Creatinine 1.03 MG/DL (0.50-1.00) Alkaline Phosphatase 130 U/L (45-117) Chloride Level 109 MEQ/L (98-107) 108 MEQ/L (98-107) Estimat Glomerular Filtration Rate 60 ML/MIN (>89) 64 ML/MIN (>89) Troponin I LESS THAN 0.02 NG/ML C-Reactive Protein 1.60 MG/DL (0.00-0.30) Triglycerides Level 302 MG/DL (42-150) Cholesterol Level 244 MG/DL (120-200) LDL Cholesterol 142 MG/DL (0-99) Neutrophils (%) (Auto) 78.3 % (16.0-70.0) Blood Urea Nitrogen 5 MG/DL (7-18) Random Glucose 123 MG/DL (74-106) PE at Discharge GENERAL: This is a well-nourished, well-developed patient, in no acute distress. SKIN: Area of irritated skin over mid upper chest from telemetry adhesive. Abrasions on bilateral forearms, scratch over anterior aspect of head. Cool and dry. HEAD: Normocephalic. Scratch over left anterior forehead extending to scalp. EYES: Extraocular motions intact. No scleral icterus. No injection or drainage. ENT: Nose without bleeding, purulent drainage or septal hematoma. CARDIOVASCULAR: Regular rate and rhythm without murmurs, gallops, or rubs. RESPIRATORY: Clear to auscultation. Breath sounds equal bilaterally. No wheezes , rales, or rhonchi. GASTROINTESTINAL: Abdomen soft, non-tender, nondistended. +BS MUSCULOSKELETAL: Extremities without clubbing, cyanosis. NEUROLOGICAL: Awake and alert. Motor and sensory grossly within normal limits. Hospital Course Pt is a 37 year old with history of fibromyalgia, migraines, presenting after a syncopal episode on 01/07 and continued per syncopal episodes. She was found to have orthostatic hypotension. She was seen and evaluated by neurology. Head and neck imaging was negative for pathologic cause of light headedness/orthostatic vitals. ECHO within normal limits, as well as telemetry. Her syncopal episode may have been due to a grand mal seizure, primary episode. She reports feeling significantly improved compared to when she was admitted. She is to follow up with neurology and her PCP after discharge. Due to this being a probably primary seizure no medications will be started at this time per Neurology. She was counseled to avoid driving, swimming, taking a bath, using or operating heavy equipment or machinery. All questions were answered. Pt declines to go to SNF, or to go home with a bedside commode or wheel chair. She is taking active steps to ensure that she does not fall, and she is able to stand without feeling light headed. She reports feeling safe going home and she selects this option over going to a SNF or having equipment at home with her. Pt Condition on Discharge: Stable Discharge Disposition: Discharge Home Discharge Instructions DIET: Follow Instructions for: As Tolerated, No Restrictions Activities you can perform: See Additionl Instruction Other Activity Instructions: Standing as tolerated, avoid extended periods of standing or other activity Follow up Referrals: Neurology - 3 Weeks with Randy Davenport MD PhD PCP Follow-up - 1 Week with Boston Freedman MD R3 New Medications: Hydrocodone-Acetaminophen (Hydrocodone-Acetaminophen) 10-325 mg Tab 1 TAB PO DAILY PRN for PAIN, #30 TAB 0 Refills Morphine ER (Morphine ER) 15 Mg Tab 15 MG PO DAILY for Pain Management, #30 TAB 0 Refills Tizanidine (Tizanidine) 2 Mg Tab 2 MG PO TID PRN for SPASM, #90 TAB 0 Refills Continued Medications: Diazepam (Diazepam) 10 Mg Tab 10 MG PO BID PRN for ANXIETY, #62 TAB [address] (Duloxetine DR) 60 Mg Capdr 62 MG PO DAILY, #60 CAP 6 Refills Gabapentin (Gabapentin) 600 Mg Tab 600 MG PO TID, #93 TAB 5 Refills Levonorgestrel-Ethinyl Estradiol (Camrese) 0.15-0.03-0.01 Mg Tab 1 TAB PO DAILY for Control, #91 TAB 5 Refills Mirtazapine (Remeron) 30 Mg Tab 30 MG PO HS for Depression Control, #31 TAB 6 Refills Additional Information Pt ciounseled about medications that could exacerbate her feeling lightheaded. She expressed understanding about limiting use of these medications, including pain medications. Maddy Ferguson MD R3 Jan 13, 2018 12:55
== END 2018-01-13 15:44 | disposition home or self-care (01) ==
LOC: NEPC 12:06 → INTOOBSV 14:58 → NEDA 14:58 → N05B 19:14
PROVIDERS: ADMIT Family Medicine; ATTEND Family Medicine
DX: I95.1 Orthostatic hypotension (principal); S50.812A Abrasion of left forearm, initial encounter; S50.811A Abrasion of right forearm, initial encounter; S00.01XA Abrasion of scalp, initial encounter; R42 Dizziness and giddiness; E87.6 Hypokalemia; R51 Headache; I48.91 Unspecified atrial fibrillation; M79.7 Fibromyalgia; I10 Essential (primary) hypertension; E78.5 Hyperlipidemia, unspecified; F32.9 Major depressive disorder, single episode, unspecified; F41.9 Anxiety disorder, unspecified; W19.XXXA Unspecified fall, initial encounter; Z91.81 History of falling
CPT/HCPCS: 70544; 70553; 72141; 80048; 80053; 80061; 80307; 81001; 82550; 83036; 83735; 84443; 84484; 84702; 84703; 85025; 85652; 86140; 93005; 93225; 93226; 93306; 95819; 96360; 96372; 97110; 97116; 97162; 99285; A9579; E0100; G0378; G8987; G8988; J1650; J2405; J7030

== ENCOUNTER 2018-01-14 11:46 | Emergency (ER) | payer OTHER ==
[~2018-01-14] VITALS: Ht 154.9 cm; Wt 113.0 kg
[~2018-01-14 11:46] MED LIST changes: +MORP1TAB24 PO; +TIZA2TAB PO
[2018-01-14 11:55] VITALS: BP 191/100; PULSE 109; RESP 24; TEMP 98; O2SAT 97
[2018-01-14 12:06] VITALS: BP 183/106; PULSE 110; RESP 17; O2SAT 96
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
[2018-01-14] MEDS ORDERED: MORPHINE SULFATE 4 MG/ML INJ IV PUSH ONE (12:30)
[2018-01-14] MEDS ORDERED: SODIUM CHLORIDE 0.9% FLUSH 10 ML FLUSH IV FLUSH PRN (12:30)
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
== END 2018-01-14 15:26 | disposition home or self-care (01) ==
LOC: NEPE 11:46
DX: R51 Headache (principal); M54.2 Cervicalgia; V49.40XA Driver injured in collision with unspecified motor vehicles in traffic accident, initial encounter; F32.9 Major depressive disorder, single episode, unspecified; F41.9 Anxiety disorder, unspecified; I10 Essential (primary) hypertension; M79.7 Fibromyalgia; G47.00 Insomnia, unspecified
CPT/HCPCS: 70450; 72125; 73610; 84703; 96374; 99284; J2270